=== PATIENT | female | born 1980 | race Caucasian/White ===

== ENCOUNTER 2016-08-31 16:09 | Emergency (ER) | payer SELFPAY ==
--- NOTE | 2016-08-31 16:30 | ER Document Report ---
ED Medical Screen (RME) - General Stated Complaint: SORE THROAT,SWELLING Mode of Arrival: Ambulatory Information source: Patient Notes: Patient claims of sore throat with recent strep throat exposure. Patient complains of exudate on her tonsils. hx: Hypertension I have greeted and performed a rapid initial assessment of this patient. A comprehensive ED assessment and evaluation of the patient, analysis of test results and completion of the medical decision making process will be conducted by additional ED providers. TRAVEL OUTSIDE OF THE [place] IN LAST 30 DAYS: No - Related Data Allergies/Adverse Reactions: No Known Allergies Allergy (Verified 02/07/16 13:02) Past Medical History - Past Medical History Cardiac Medical History: Reports: Hx Hypertension Past Surgical History: Reports: Hx Section, Hx Orthopedic Surgery - right foot Bone Spur 1990, Hx Tubal Ligation - Immunizations Immunizations up to date: Yes Hx Diphtheria, Pertussis, Tetanus Vaccination: No Physical Exam - Vital signs Vitals: Temp Pulse Resp BP Pulse Ox 99.7 F 100 18 158/98 H 96 08/31/16 16:16 08/31/16 16:16 08/31/16 16:16 08/31/16 16:16 08/31/16 16:16 - HEENT Pharynx: Erythema, Exudate Course - Vital Signs Vital signs: Temp Pulse Resp BP Pulse Ox 99.7 F 100 18 158/98 H 96 08/31/16 16:16 08/31/16 16:16 08/31/16 16:16 08/31/16 16:16 08/31/16 16:16
--- NOTE | 2016-08-31 20:39 | ER Document Report ---
HPI - HPI Pain Level: 2 Context: patient is a 36 year old female p/w sore throat after recent strep exposure from niece. states her symptoms started on thursday. She admits to sore throat , dysphagia, feeling warm/subjective fevers. Otherwise she denies any headaches , nasal drainage, ear pain, difficulty breathing, cough, shortness of breath. Patient has a past medical history significant for hypertension - REPRODUCTIVE Reproductive: DENIES: : - DERM Skin Color: Normal, [place] Past Medical History - General Information source: Patient - Social History Smoking Status: Unknown if Ever Smoked Family History: Reviewed & Not Pertinent Patient has suicidal ideation: No Patient has homicidal ideation: No - Past Medical History Cardiac Medical History: Reports: Hx Hypertension Renal/ Medical History: Denies: Hx Peritoneal Dialysis Past Surgical History: Reports: Hx Section, Hx Orthopedic Surgery - right foot Bone Spur 1990, Hx Tubal Ligation - Immunizations Immunizations up to date: Yes Hx Diphtheria, Pertussis, Tetanus Vaccination: No Vertical Provider Document - CONSTITUTIONAL Agree With Documented VS: Yes Exam Limitations: No Limitations General Appearance: WD/WN, No Apparent Distress - INFECTION CONTROL TRAVEL OUTSIDE OF THE [place] IN LAST 30 DAYS: No - HEENT HEENT: Atraumatic, Normocephalic, PERRLA, Pharyngeal Exudate, Pharyngeal Tenderness, Pharyngeal Erythema. negative: Tympanic Membrane Red, Tympanic Membrane Bulging - NECK Neck: Normal Inspection. negative: Lymphadenopathy-Left, Lymphadenopathy-Right - RESPIRATORY Respiratory: Breath Sounds Normal, No Respiratory Distress, Chest Non-Tender. negative: Rales, Rhonchi, Wheezing O2 Sat by Pulse Oximetry: 96 - CARDIOVASCULAR Cardiovascular: Regular Rate, Regular Rhythm, No Murmur Pulses: Normal: Radial - NEURO Level of Consciousness: Awake, Alert, Appropriate Motor/Sensory: No Motor Deficit, No Sensory Deficit - DERM Integumentary: Warm, Dry, No Rash Course - Re-evaluation Re-evalutation: 08/31/16 22:43 Patient is a 36-year-old female presenting emergency department with sore throat , pharyngeal exudate since Thursday with a positive strep exposure. Check came back negative but will treat patient on clinical evaluation. Discharge home on penicillin VK to follow up with her primary care provider as needed. - Vital Signs Vital signs: Temp Pulse Resp BP Pulse Ox 99.7 F 100 18 158/98 H 96 08/31/16 16:16 08/31/16 16:16 08/31/16 16:16 08/31/16 16:16 08/31/16 16:16 Discharge - Discharge Clinical Impression: Pharyngitis Qualifiers: Pharyngitis/tonsillitis etiology: unspecified etiology Qualified Code(s): J02.9 - Acute pharyngitis, unspecified Condition: Stable Disposition: HOME, SELF-CARE Instructions: Strep Throat ([facility]), Penicillin V K ([facility]) Prescriptions: Penicillin V Potassium [Penicillin Vk 500 mg Tablet] 500 mg PO BID 10 Days Forms: Return to Work Referrals: [facility] [Primary Care Provider] - Follow up as needed
[2016-08-31] MEDS ORDERED: PENICILLIN V POTASSIUM 500 MG TABLET PO ONE (20:41)
[2016-08-31 21:02] VITALS: BP 152/84
== END 2016-08-31 20:59 | disposition home or self-care (01) ==
LOC: ER 16:09
DX: J02.9 Acute pharyngitis, unspecified (principal); R13.10 Dysphagia, unspecified; R50.9 Fever, unspecified
CPT/HCPCS: 87070; 87880; 99283

== ENCOUNTER 2017-11-07 02:57 | Emergency (ER) | payer SELFPAY ==
[2017-11-07] MEDS ORDERED: MORPHINE SULFATE 10 MG/ML INJ IV ONE (04:36)
[2017-11-07] MEDS ORDERED: ONDANSETRON HCL INJ/PF 4 MG/2 ML SDV IV ONE (04:36)
[2017-11-07] MEDS ORDERED: NORMAL SALINE 1000 ML 1,000 ML IV ONE (04:36)
--- NOTE | 2017-11-07 04:42 | ER Document Report ---
ED GI/ - General Chief Complaint: Abdominal Pain Stated Complaint: LOWER RT ABDOMINAL PAIN Time Seen by Provider: 11/07/17 04:23 Notes: Patient is a 37-year-old female that comes emergency department for chief complaint of right lower quadrant pain. Pain started last night, she states that has been persistent and began to get worse tonight, prompting her to come into the emergency department. She denies nausea or vomiting, she denies flank pain, she denies dysuria, vaginal bleeding or discharge, she is not sexually active. Past medical history of , tubal ligation, hypertension, arthritis. She smokes, denies alcohol or recreational drugs. TRAVEL OUTSIDE OF THE [place] IN LAST 30 DAYS: No - Related Data Allergies/Adverse Reactions: No Known Allergies Allergy (Verified 11/07/17 05:03) Past Medical History - General Information source: Patient - Social History Smoking Status: Never Smoker Frequency of alcohol use: None Drug Abuse: None Lives with: Family Family History: Reviewed & Not Pertinent Patient has suicidal ideation: No Patient has homicidal ideation: No - Past Medical History Cardiac Medical History: Reports: Hx Hypertension Renal/ Medical History: Denies: Hx Peritoneal Dialysis Past Surgical History: Reports: Hx Section, Hx Orthopedic Surgery - right foot Bone Spur 1990, Hx Tubal Ligation - Immunizations Immunizations up to date: Yes Hx Diphtheria, Pertussis, Tetanus Vaccination: No Review of Systems - Review of Systems Constitutional: No symptoms reported EENT: No symptoms reported Cardiovascular: No symptoms reported Respiratory: No symptoms reported Gastrointestinal: See HPI Genitourinary: No symptoms reported Female Genitourinary: No symptoms reported Musculoskeletal: No symptoms reported Skin: No symptoms reported Hematologic/Lymphatic: No symptoms reported Neurological/Psychological: No symptoms reported Physical Exam - Vital signs Vitals: Temp Pulse Resp BP Pulse Ox 98.4 F 96 18 176/113 H 97 11/07/17 03:06 11/07/17 03:06 11/07/17 03:06 11/07/17 03:06 11/07/17 03:06 Interpretation: Normal - General General appearance: Appears well In distress: None - HEENT Head: Normocephalic, Atraumatic Eyes: Normal Conjunctiva: Normal Extraocular movements intact: Yes Eyelashes: Normal Pupils: PERRL Mouth/Lips: Normal Mucous membranes: Normal Pharynx: Normal Neck: Normal - Respiratory Respiratory status: No respiratory distress Chest status: Nontender Breath sounds: Normal. No: Decreased air movement, Wheezing Chest palpation: Normal - Cardiovascular Rhythm: Regular. No: Tachycardia Heart sounds: Normal auscultation, S1 appreciated, S2 appreciated Murmur: No - Abdominal Inspection: Normal Distension: No distension Bowel sounds: Normal Tenderness: Tender - Patient with minimal generalized abdominal tenderness, however she does have specific tenderness in the mid to right lower abdomen and also at McBurney's point. No rebound tenderness. Organomegaly: No organomegaly - Back Back: Normal, Nontender. No: Tender, CVA tenderness - Extremities General upper extremity: Normal inspection, Nontender, Normal color, Normal ROM , Normal temperature General lower extremity: Normal inspection, Nontender, Normal color, Normal ROM , Normal temperature, Normal weight bearing. No: James's sign - Neurological Neuro grossly intact: Yes Cognition: Normal Orientation: AAOx4 [place] Coma Scale Eye Opening: Spontaneous [place] Coma Scale Verbal: Oriented [place] Coma Scale Motor: Obeys Commands [place] Coma Scale Total: 15 Speech: Normal Motor strength normal: LUE, RUE, LLE, RLE Sensory: Normal - Psychological Associated symptoms: Normal affect, Normal mood - Skin Skin Temperature: Warm Skin Moisture: Dry Skin Color: Normal Course - Re-evaluation Re-evalutation: Patient does not appear to be in any significant distress, she does have some generalized abdominal tenderness but she also has specific abdominal tenderness in the mid to right lower abdomen and at McBurney's point. No rebound tenderness. No abdominal rigidity. Unremarkable vital signs other than hypertension. Patient is not sexually active. CBC, chemistry, urinalysis are generally unremarkable. However after discussion because of patient specific right lower quadrant tenderness CAT scan will be performed to rule out acute appendicitis or other acute abdominal pathology. 11/07/17 07:52 CAT scan shows normal appendix, no evidence of acute abdominal etiology. Incidental findings include moderate splenomegaly and L5-S1 disc bulge. No neurological deficits, no left upper quadrant pain specifically, on reevaluation patient states she feels much improved and she is well-appearing. Reexamination of her abdomen after drinking oral contrast shows mild diffuse pain but she does not have specific McBurney's tenderness or guarding on exam. I have low suspicion of acute abdomen based on her workup and reevaluation. Discussed with patient, discussed recommendations, follow-up, return precautions , provided with a copy of her report. Patient states satisfaction and agreement. - Vital Signs Vital signs: Temp Pulse Resp BP Pulse Ox 98.4 F 100 18 176/113 H 97 11/07/17 03:06 11/07/17 05:00 11/07/17 03:06 11/07/17 03:06 11/07/17 03:06 - Laboratory Result Diagrams: 11/07/17 04:53 11/07/17 04:53 Laboratory results interpreted by me: 11/07/17 11/07/17 11/07/17 04:53 04:53 04:53 RBC 5.53 H Hgb 11.2 L MCV 67 L MCH 20.2 L MCHC 30.2 L RDW 19.8 H Glucose 120 H Urine Blood LARGE H Urine Urobilinogen 2.0 H Ur Leukocyte Esterase TRACE H Discharge - Discharge Clinical Impression: Abdominal pain Qualifiers: Abdominal location: generalized Qualified Code(s): R10.84 - Generalized abdominal pain Condition: Stable Disposition: HOME, SELF-CARE Additional Instructions: The exact cause of your abdominal pain is unclear at this time. I suspect this should resolve with time, I recommend that you take the Colace as prescribed for the next 2 days, drink plenty fluids, take the Toradol if needed for pain. Follow-up with primary care. Your CAT scan shows incidental findings of enlarged spleen and L5-S1 disc bulging. Follow-up with primary care for additional evaluation and monitoring. Return if you worsen including specific area of return or worsening pain, vomiting, fever, or any other concerning or worsening symptoms. Prescriptions: Ketorolac Tromethamine [Toradol 10 mg Tablet] 10 mg PO Q8HP PRN #24 tablet PRN Reason: Docusate Sodium [Colace 100 mg Capsule] 100 mg PO ASDIR PRN #30 capsule PRN Reason: Forms: Elevated Blood Pressure, Return to Work
[2017-11-07 05:25] LABS: APPEARANCE,URINE SLIGHTLY-CLOUDY; BILIRUBIN,URINE NEGATIVE (NEGATIVE); COLOR,URINE YELLOW; GLUCOSE, URINE NEGATIVE (NEGATIVE); KETONES,URINE NEGATIVE (NEGATIVE); LEUKOCYTE ESTERASE,URINE TRACE (NEGATIVE); NITRITE,URINE NEGATIVE (NEGATIVE); PROTEIN,URINE NEGATIVE (NEGATIVE); URINE SPECIFIC GRAVITY 1.021
[2017-11-07 05:26] LABS: ABSOLUTE BASOPHILS # (AUTO) 0.1 10^3/uL (0.0-0.2); ABSOLUTE EOSINOPHILS # (AUTO) 0.2 10^3/uL (0.0-0.6); ABSOLUTE LYMPHOCYTES (AUTO) 2.3 10^3/uL (0.5-4.7); ABSOLUTE MONOCYTES (AUTO) 0.5 10^3/uL (0.1-1.4); ABSOLUTE NEUT (AUTO) 6.2 10^3/uL (1.7-8.2); BASOPHILS % (AUTO) 0.7 % (0-2); EOSINOPHILS % (AUTO) 2.6 % (0-6); HEMOGLOBIN 11.2 g/dL (12.0-15.5); LYMPHOCYTES % (AUTO) 25.3 % (13-45); MEAN CORPUSCULAR HEMOGLOBIN 20.2 pg (27.0-33.4); MEAN CORPUSCULAR HGB CONC 30.2 g/dL (32.0-36.0); MEAN CORPUSCULAR VOLUME 67 fl (80-97); MONOCYTES % (AUTO) 4.9 % (3-13); PLATELET COUNT 284 10^3/uL (150-450); RED BLOOD COUNT 5.53 10^6/uL (3.72-5.28); RED CELL DISTRIBUTION WIDTH 19.8 % (11.5-14.0); SEGMENTED NEUTROPHILS % (AUTO) 66.5 % (42-78); TOTAL CELLS COUNTED % (AUTO) 100 %; WHITE BLOOD COUNT 9.3 10^3/uL (4.0-10.5)
[2017-11-07 05:34] LABS: ALANINE AMINOTRANSFERASE 44 U/L (9-52); ALBUMIN 4.5 g/dL (3.5-5.0); ALKALINE PHOSPHATASE 85 U/L (38-126); ANION GAP 11 (5-19); ASPARTATE AMINO TRANSFERASE 28 U/L (14-36); BILIRUBIN,DIRECT 0.3 mg/dL (0.0-0.4); BILIRUBIN,TOTAL 0.5 mg/dL (0.2-1.3); BLOOD UREA NITROGEN 13 mg/dL (7-20); CALCIUM 9.7 mg/dL (8.4-10.2); CARBON DIOXIDE 29 mmol/L (22-30); CHLORIDE 104 mmol/L (98-107); GLUCOSE 120 mg/dL (75-110); POTASSIUM 3.9 mmol/L (3.6-5.0); SODIUM 144.1 mmol/L (137-145)
--- NOTE | 2017-11-07 07:37 | RADIOLOGY REPORT (SQ) ---
EXAM DESCRIPTION: CT ABD/PELVIS WITH IV ORAL CLINICAL HISTORY: 37 years Female, RLQ pain COMPARISON: 03.08.11 TECHNIQUE: IV contrast. Coronal and sagittal reformat. This exam was performed according to our departmental dose-optimization program, which includes automated exposure control, adjustment of the mA and/or kV according to patient size and/or use of iterative reconstruction technique. FINDINGS: Moderate splenomegaly with splenic index of 1419 (prior: 782, 03/08/11). No free fluid. Normal appendix. Moderate L5-S1 disc bulge causes moderate left foraminal stenosis. Lower thorax, liver, decompressed gallbladder, pancreas, adrenals, renal system, gastrointestinal tract, pelvic organs, lymphatics, vasculature, and musculoskeleton appear otherwise unremarkable. IMPRESSION: Moderate splenomegaly.
[2017-11-07 08:29] VITALS: BP 163/92
== END 2017-11-07 08:25 | disposition home or self-care (01) ==
LOC: ER 02:57
DX: R10.84 Generalized abdominal pain (principal); R10.817 Generalized abdominal tenderness; R16.1 Splenomegaly, not elsewhere classified; M51.87 Other intervertebral disc disorders, lumbosacral region; I10 Essential (primary) hypertension; Z98.51 Tubal ligation status
CPT/HCPCS: 99284; 96361; 96374; 96375; 36415; 84703; 85025; 80053; 81001; 74177; J2270; J2405; J7030

== ENCOUNTER 2017-12-04 11:30 | Emergency (ER) | payer SELFPAY ==
[2017-12-04] MEDS ORDERED: IPRATROPIUM/ALBUTEROL 0.5-2.5 MG/3 ML AMPUL NEB ONE ×3 (11:50→11:51)
[2017-12-04] MEDS ORDERED: PREDNISONE 20 MG TABLET PO ONE (11:50)
--- NOTE | 2017-12-04 11:53 | ER Document Report ---
ED General - General Chief Complaint: Shortness Of Breath Stated Complaint: SHORTNESS OF BREATH Time Seen by Provider: 12/04/17 11:39 Mode of Arrival: Ambulatory Information source: Patient Notes: 37 yr old female smoker presents with 2 days of sob, productive cough. Patient denies any fevers or chills notes she has been unable to smoke TRAVEL OUTSIDE OF THE [place] IN LAST 30 DAYS: No - HPI Onset: Other Onset/Duration: Persistent Quality of pain: No pain Severity: Moderate Pain Level: Denies Associated symptoms: Productive cough, Shortness of breath Exacerbated by: Movement, Walking, Coughing Relieved by: Denies Similar symptoms previously: Yes - Bronchitis Recently seen / treated by doctor: No - Related Data Allergies/Adverse Reactions: No Known Allergies Allergy (Verified 12/04/17 11:39) Past Medical History - Social History Smoking Status: Current Every Day Smoker Cigarette use (# per day): Yes Chew tobacco use (# tins/day): No Smoking Education Provided: Yes - Patient counselled regarding cessation for 4 minutes Frequency of alcohol use: None Drug Abuse: None Family History: Reviewed & Not Pertinent Patient has suicidal ideation: No Patient has homicidal ideation: No - Past Medical History Cardiac Medical History: Reports: Hx Hypertension Renal/ Medical History: Denies: Hx Peritoneal Dialysis Past Surgical History: Reports: Hx Section, Hx Orthopedic Surgery - right foot Bone Spur 1990, Hx Tubal Ligation - Immunizations Immunizations up to date: Yes Hx Diphtheria, Pertussis, Tetanus Vaccination: No Review of Systems - Review of Systems Notes: REVIEW OF SYSTEMS: CONSTITUTIONAL : Denies fever, chills, or sweats. Denies recent illness. EENT: Denies eye, ear, throat, or mouth pain or symptoms. Denies nasal or sinus congestion or discharge. Denies throat, tongue, or mouth swelling or difficulty swallowing. CARDIOVASCULAR: Denies chest pain. Denies palpitations or racing or irregular heart beat. Denies ankle edema. RESPIRATORY: Admits to smoking shortness of breath productive cough GASTROINTESTINAL: Denies abdominal pain or distention. Denies nausea, vomiting , or diarrhea. Denies blood in vomitus, stools, or per rectum. Denies black, tarry stools. Denies constipation. GENITOURINARY: Denies difficulty urinating, painful urination, burning, frequency, blood in urine, or discharge. FEMALE GENITOURINARY: Denies vaginal bleeding, heavy or abnormal periods, irregular periods. Denies vaginal discharge or odor. MUSCULOSKELETAL: Denies back or neck pain or stiffness. Denies joint pain or swelling. SKIN: Denies rash, lesions or sores. HEMATOLOGIC : Denies easy bruising or bleeding. LYMPHATIC: Denies swollen, enlarged glands. NEUROLOGICAL: Denies confusion or altered mental status. Denies passing out or loss of consciousness. Denies dizziness or lightheadedness. Denies headache. Denies weakness or paralysis or loss of use of either side. Denies problems with gait or speech. Denies sensory loss, numbness, or tingling. Denies seizures. PSYCHIATRIC: Denies anxiety or stress. Denies depression, suicidal ideation, or homicidal ideation. ALL OTHER SYSTEMS REVIEWED AND NEGATIVE. PHYSICAL EXAMINATION: GENERAL: Well-appearing, well-nourished and in no acute distress. HEAD: Atraumatic, normocephalic. EYES: Pupils equal round and reactive to light, extraocular movements intact, conjunctiva are normal. ENT: Nares patent, oropharynx clear without exudates. Moist mucous membranes. NECK: Normal range of motion, supple without lymphadenopathy LUNGS: Generalized inspiratory expiratory wheezing all throughout without any respiratory distress HEART: Regular rate and rhythm without murmurs ABDOMEN: Soft, nontender, nondistended abdomen. No guarding, no rebound. No masses appreciated. Female : deferred Musculoskeletal: Normal range of motion, no pitting or edema. No cyanosis. NEUROLOGICAL: Cranial nerves grossly intact. Normal speech, normal gait. Normal sensory, motor exams PSYCH: Normal mood, normal affect. SKIN: Warm, Dry, normal turgor, no rashes or lesions noted. Dictation was performed using [employer] voice recognition software Physical Exam - Vital signs Vitals: Temp Pulse Resp BP Pulse Ox 98.4 F 91 22 H 151/92 H 94 12/04/17 11:37 12/04/17 11:37 12/04/17 11:37 12/04/17 11:37 12/04/17 11:37 Course - Re-evaluation Re-evalutation: 12/04/17 11:53 Patient is in fact wheezing, I will give her DuoNeb's steroids doxycycline 12/04/17 13:53 pt after breathing treatments notes signifcant improvement, ambulated satting 96 %, will dc home with steroids and extremely close follow up. After performing a Medical Screening Examination, I estimate there is LOW risk for ACUTE CORONARY SYNDROME, PULMONARY EMBOLI, RESPIRATORY FAILURE, SEPSIS OR MENINGITIS, thus I consider the discharge disposition reasonable. I have reevaluated this patient multiple times and no significant life threatening changes are noted. The patient and I have discussed the diagnosis and risks, and we agree with discharging home with close follow-up. We also discussed returning to the Emergency Department immediately if new or worsening symptoms occur. We have discussed the symptoms which are most concerning (e.g., changing or worsening pain, trouble swallowing or breathing, neck stiffness, fever) that necessitate immediate return. - Vital Signs Vital signs: Temp Pulse Resp BP Pulse Ox 98.4 F 91 22 H 151/92 H 94 12/04/17 11:37 12/04/17 11:37 12/04/17 11:37 12/04/17 11:37 12/04/17 11:37 - Laboratory Result Diagrams: 12/04/17 12:25 12/04/17 12:25 Laboratory results interpreted by me: 12/04/17 12:25 RBC 5.49 H Hgb 11.2 L MCV 67 L MCH 20.4 L MCHC 30.5 L RDW 20.1 H Discharge - Discharge Clinical Impression: Bronchitis Condition: Stable Disposition: HOME, SELF-CARE Instructions: Bronchitis With Bronchospasm (Wheezing) (OM) Additional Instructions: Return immediately if symptoms are worsening Prescriptions: Prednisone [Deltasone 20 mg Tablet] 3 tab PO DAILY 5 Days tablet
[2017-12-04] MEDS ORDERED: METHYLPREDNISOLONE INJ 125 MG/2 ML SDV IV ONE (11:55)
[2017-12-04 12:49] LABS: ABSOLUTE EOSINOPHILS # (AUTO) 0.2 10^3/uL (0.0-0.6); ABSOLUTE LYMPHOCYTES (AUTO) 0.7 10^3/uL (0.5-4.7); ABSOLUTE MONOCYTES (AUTO) 0.3 10^3/uL (0.1-1.4); ABSOLUTE NEUT (AUTO) 3.8 10^3/uL (1.7-8.2); BASOPHILS % (AUTO) 0.8 % (0-2); EOSINOPHILS % (AUTO) 3.5 % (0-6); HEMATOCRIT 36.6 % (36.0-47.0); HEMOGLOBIN 11.2 g/dL (12.0-15.5); LYMPHOCYTES % (AUTO) 13.3 % (13-45); MEAN CORPUSCULAR HEMOGLOBIN 20.4 pg (27.0-33.4); MEAN CORPUSCULAR HGB CONC 30.5 g/dL (32.0-36.0); MEAN CORPUSCULAR VOLUME 67 fl (80-97); MONOCYTES % (AUTO) 6.8 % (3-13); PLATELET COUNT 242 10^3/uL (150-450); RED BLOOD COUNT 5.49 10^6/uL (3.72-5.28); RED CELL DISTRIBUTION WIDTH 20.1 % (11.5-14.0); SEGMENTED NEUTROPHILS % (AUTO) 75.6 % (42-78); TOTAL CELLS COUNTED % (AUTO) 100 %; WHITE BLOOD COUNT 5.1 10^3/uL (4.0-10.5)
[2017-12-04 13:06] LABS: ALANINE AMINOTRANSFERASE 34 U/L (9-52); ALBUMIN 4.2 g/dL (3.5-5.0); ALKALINE PHOSPHATASE 91 U/L (38-126); ANION GAP 12 (5-19); ASPARTATE AMINO TRANSFERASE 17 U/L (14-36); BILIRUBIN,DIRECT 0.2 mg/dL (0.0-0.4); BILIRUBIN,TOTAL 0.9 mg/dL (0.2-1.3); BLOOD UREA NITROGEN 9 mg/dL (7-20); CALCIUM 9.5 mg/dL (8.4-10.2); CARBON DIOXIDE 30 mmol/L (22-30); CHLORIDE 101 mmol/L (98-107); GLUCOSE 103 mg/dL (75-110); POTASSIUM 3.9 mmol/L (3.6-5.0); SODIUM 143.4 mmol/L (137-145); TOTAL PROTEIN 6.8 g/dL (6.3-8.2)
--- NOTE | 2017-12-04 13:18 | RADIOLOGY REPORT (SQ) ---
EXAM DESCRIPTION: CHEST 2 VIEWS COMPLETED DATE/TIME: 12/04/2017 12:46 pm REASON FOR STUDY: cough, wheezing COMPARISON: 06/15/2016. EXAM PARAMETERS: NUMBER OF VIEWS: two views TECHNIQUE: Digital Frontal and Lateral radiographic views of the chest acquired. RADIATION DOSE: NA LIMITATIONS: none FINDINGS: LUNGS AND PLEURA: No opacities, masses or pneumothorax. No pleural effusion. MEDIASTINUM AND HILAR STRUCTURES: No masses or contour abnormalities. HEART AND VASCULAR STRUCTURES: Heart normal size. No evidence for failure. BONES: No acute findings. HARDWARE: None in the chest. OTHER: No other significant finding. IMPRESSION: NO ACUTE RADIOGRAPHIC FINDING IN THE CHEST. TECHNICAL DOCUMENTATION: JOB ID: [id number] [email or web address] All Rights Reserved Reading location - IP/workstation name: [email or web address]
[2017-12-04] MEDS ORDERED: ACETAMINOPHEN 325 MG TABLET PO ONE (13:38)
[2017-12-04] MEDS ORDERED: ALBUTEROL SULFATE HFA (90 MCG/PUFF) 8 GM MDI (1 MDI/ER DISP) IH PRN (13:55)
[2017-12-04 14:06] VITALS: BP 168/82
== END 2017-12-04 14:10 | disposition home or self-care (01) ==
LOC: ER 11:30
DX: J40 Bronchitis, not specified as acute or chronic (principal); R06.02 Shortness of breath; F17.210 Nicotine dependence, cigarettes, uncomplicated; I10 Essential (primary) hypertension; Z98.51 Tubal ligation status
CPT/HCPCS: 99406; 94640 ×2; 99285; 96374; 36415; 85025; 80053; 71046; J2930; J3490; J7620

== ENCOUNTER 2018-03-18 20:57 | Emergency (ER) | payer SELFPAY ==
[2018-03-18] MEDS ORDERED: ASPIRIN 81 MG TABLET, CHEWABLE PO ONE (21:15)
[2018-03-18 22:19] LABS: ABSOLUTE BASOPHILS # (AUTO) 0.1 10^3/uL (0.0-0.2); ABSOLUTE EOSINOPHILS # (AUTO) 0.3 10^3/uL (0.0-0.6); ABSOLUTE LYMPHOCYTES (AUTO) 2.1 10^3/uL (0.5-4.7); ABSOLUTE MONOCYTES (AUTO) 0.4 10^3/uL (0.1-1.4); ABSOLUTE NEUT (AUTO) 5.5 10^3/uL (1.7-8.2); BASOPHILS % (AUTO) 1.1 % (0-2); HEMOGLOBIN 11.6 g/dL (12.0-15.5); LYMPHOCYTES % (AUTO) 25.2 % (13-45); MEAN CORPUSCULAR HEMOGLOBIN 20.8 pg (27.0-33.4); MEAN CORPUSCULAR HGB CONC 30.5 g/dL (32.0-36.0); MEAN CORPUSCULAR VOLUME 68 fl (80-97); MONOCYTES % (AUTO) 4.8 % (3-13); PLATELET COUNT 280 10^3/uL (150-450); RED BLOOD COUNT 5.58 10^6/uL (3.72-5.28); RED CELL DISTRIBUTION WIDTH 19.2 % (11.5-14.0); SEGMENTED NEUTROPHILS % (AUTO) 65.9 % (42-78); TOTAL CELLS COUNTED % (AUTO) 100 %; WHITE BLOOD COUNT 8.4 10^3/uL (4.0-10.5)
--- NOTE | 2018-03-18 22:38 | RADIOLOGY REPORT (SQ) ---
EXAM DESCRIPTION: XR CHEST 1 VIEW COMPLETED DATE/TME: 03/18/2018 21:15 CLINICAL HISTORY: 37 years Female, cp COMPARISON: None. NUMBER OF VIEWS/TECHNIQUE: 1/AP FINDINGS: Adequate lung volume, clear parenchyma, normal cardiac silhouette, and intact bony thorax. IMPRESSION: No acute cardiopulmonary findings.
[2018-03-18 22:41] LABS: ALANINE AMINOTRANSFERASE 28 U/L (9-52); ALBUMIN 4.3 g/dL (3.5-5.0); ALKALINE PHOSPHATASE 88 U/L (38-126); ANION GAP 10 (5-19); ASPARTATE AMINO TRANSFERASE 17 U/L (14-36); BILIRUBIN,DIRECT 0.3 mg/dL (0.0-0.4); BILIRUBIN,TOTAL 0.4 mg/dL (0.2-1.3); BLOOD UREA NITROGEN 15 mg/dL (7-20); CALCIUM 9.6 mg/dL (8.4-10.2); CARBON DIOXIDE 28 mmol/L (22-30); CHLORIDE 102 mmol/L (98-107); CREATINE KINASE 90 U/L (30-135); GLUCOSE 92 mg/dL (75-110); SODIUM 140.3 mmol/L (137-145); TOTAL PROTEIN 7.2 g/dL (6.3-8.2)
[2018-03-18 22:53] LABS: CREATINE KINASE MB 1.78 ng/mL (<4.55); TROPONIN I < 0.012 ng/mL
[2018-03-18] MEDS ORDERED: METOPROLOL TARTRATE 25 MG TABLET PO ONE (23:42)
--- NOTE | 2018-03-18 23:43 | ER Document Report ---
ED General - General Chief Complaint: Chest Pain Stated Complaint: CHEST PAIN Time Seen by Provider: 03/18/18 21:47 Notes: Patient is a 37-year-old female with a past medical history of tachycardia, palpitations, morbid obesity, current everyday tobacco use who presents with chest discomfort and palpitations. Patient reports earlier today while at work she began to have an episode of palpitations. She states that she is used to these episodes of palpitations but today she had an associated sharp, stabbing pain to her chest wall diffusely. She states that the pain was intermittent and has now resolved. Nothing was noted to improve or worsen her symptoms. She states that she has been taking her metoprolol as prescribed. She has not contacted her primary care doctor regarding today's concerns. She denies any associated diaphoresis, shortness of breath, pleuritic pain or syncope. No history of DVT or pulmonary embolus. No use of estrogen. TRAVEL OUTSIDE OF THE [place] IN LAST 30 DAYS: No - Related Data Allergies/Adverse Reactions: No Known Allergies Allergy (Verified 03/18/18 22:13) Past Medical History - General Information source: Patient - Social History Smoking Status: Current Every Day Smoker Cigarette use (# per day): Yes - 1 pack per day Chew tobacco use (# tins/day): No Smoking Education Provided: Yes - Smoking cessation counseling was provided for 4 minutes at the bedside Frequency of alcohol use: None Drug Abuse: None Lives with: Family Family History: Reviewed & Not Pertinent Patient has suicidal ideation: No Patient has homicidal ideation: No - Past Medical History Cardiac Medical History: Reports: Hx Hypertension Renal/ Medical History: Denies: Hx Peritoneal Dialysis Past Surgical History: Reports: Hx Section, Hx Orthopedic Surgery - R foot Bone Spur 1990, Hx Tubal Ligation - Immunizations Immunizations up to date: Yes Hx Diphtheria, Pertussis, Tetanus Vaccination: No Review of Systems - Review of Systems Notes: Constitutional: Negative for fever. HENT: Negative for sore throat. Eyes: Negative for visual changes. Cardiovascular: Positive for chest pain. Respiratory: Negative for shortness of breath. Gastrointestinal: Negative for abdominal pain, vomiting or diarrhea. Genitourinary: Negative for dysuria. Musculoskeletal: Negative for back pain. Skin: Negative for rash. Neurological: Negative for headaches, weakness or numbness. 10 point ROS negative except as marked above and in HPI. Physical Exam - Vital signs Vitals: Resp Pulse Ox 14 98 03/18/18 21:49 03/18/18 21:49 Interpretation: Tachycardic Notes: PHYSICAL EXAMINATION: GENERAL: Well-appearing, well-nourished and in no acute distress. HEAD: Atraumatic, normocephalic. EYES: Pupils equal round and reactive to light, extraocular movements intact, sclera anicteric, conjunctiva are normal. ENT: nares patent, oropharynx clear without exudates. Moist mucous membranes. NECK: Normal range of motion, supple without lymphadenopathy LUNGS: Breath sounds clear to auscultation bilaterally and equal. No wheezes rales or rhonchi. HEART: Regular tachycardia without murmurs ABDOMEN: Soft, nontender, normoactive bowel sounds. No guarding, no rebound. No masses appreciated. EXTREMITIES: Normal range of motion, no pitting or edema. No cyanosis. NEUROLOGICAL: No focal neurological deficits. Moves all extremities spontaneously and on command. PSYCH: Normal mood, normal affect. SKIN: Warm, Dry, normal turgor, no rashes or lesions noted. Course - Re-evaluation Re-evalutation: 03/18/18 23:39 Presentation of chest pain and palpitations in an otherwise well appearing patient. Low clinical suspicion for ACS given clinical history, exam, EKG without ST elevations or depressions, and negative initial troponin. HEART score less than or equal to 3. PE also seems unlikely given clinical history, and absence of any complaint of shortness of breath. Although patient is tachycardic she reports that this is baseline, has a long-standing history of tachycardia and typically has a resting heart rate in the low 100s. CXR without evidence of pneumothorax or pneumonia. No widened mediastinum. Aortic dissection also seems unlikely given history, symmetric pulses, CXR, and vitals. Will repeat a delta troponin, provide a oral dose of evening metoprolol that the patient normally takes and then reassess. 03/19/18 00:47 Repeat troponin is normal although this was obtained earlier than I desired based on patient's request. She states she would otherwise have left without a repeat troponin. Final assessment: Chest pain in a patient without evidence of cardiac or other serious etiology on workup today. I discussed with patient that , based on their age, risk factors and emergency department testing today, the likelihood that their symptoms are related to a heart attack is very low ( estimated risk of heart attack or over the next 30 days of less than 1%). The patient demonstrates decision making capacity and has verbalized an understanding of these risks to me. Based on this, the patient has chosen to follow-up as an outpatient. Usual chest pain return precautions reviewed. The patient states understanding and agreement with this plan. - Vital Signs Vital signs: Temp Pulse Resp BP Pulse Ox 14 141/86 H 99 03/19/18 00:48 03/19/18 00:48 03/19/18 00:48 - Laboratory Result Diagrams: 03/18/18 21:55 03/18/18 21:55 Laboratory results interpreted by me: 03/18/18 21:55 RBC 5.58 H Hgb 11.6 L MCV 68 L MCH 20.8 L MCHC 30.5 L RDW 19.2 H - Diagnostic Test Radiology reviewed: Image reviewed, Reports reviewed Radiology results interpreted by me: 03/18/18 23:43 Chest x-ray: No acute infiltrate or pneumothorax - EKG Interpretation by Me Additional EKG results interpreted by me: 03/18/18 23:43 Sinus tachycardia. Rate 107. No ST elevations or depressions. QTC is 470. Discharge - Discharge Clinical Impression: Palpitations Chest pain Qualifiers: Chest pain type: unspecified Qualified Code(s): R07.9 - Chest pain, unspecified Condition: Good Disposition: HOME, SELF-CARE Additional Instructions: You were seen today for chest pain. The exact cause of your pain is unclear. However, based on your cardiac enzyme testing, chest x-ray, and EKG it does not appear that it is from an immediately life-threatening cause at this time. Although your testing here is normal is critical that you follow-up with your primary care physician for continued evaluation of this chest pain and possible stress testing. I recommended you see your physician within the next 24-48 hours to be evaluated for consideration of a stress test. Please return to emergency department immediately if you have worsening of your chest pain, shortness of breath, vomiting, become unable to exert yourself due to pain or difficulty breathing, you pass out, or have any pain that radiates into your arms, jaw, or back. Please also return if you have any additional symptoms that are concerning to you. Referrals: [facility] [Primary Care Provider] - Follow up as needed
[2018-03-19 00:51] VITALS: BP 141/86
--- NOTE | 2018-03-19 07:35 | EKG REPORT ---
SEVERITY:- BORDERLINE ECG - SINUS TACHYCARDIA BORDERLINE T ABNORMALITIES, INFERIOR LEADS : Confirmed by: Asif Oliver MD 19-Mar-2018 07:35:15
== END 2018-03-19 00:59 | disposition home or self-care (01) ==
LOC: ER 20:57
DX: R07.89 Other chest pain (principal); R00.2 Palpitations; E66.01 Morbid (severe) obesity due to excess calories; Z68.43 Body mass index [BMI] 50.0-59.9, adult; R00.0 Tachycardia, unspecified; I10 Essential (primary) hypertension; Z79.899 Other long term (current) drug therapy; F17.210 Nicotine dependence, cigarettes, uncomplicated; Z71.6 Tobacco abuse counseling
CPT/HCPCS: 36415; 71045; 80053; 82550; 82553; 84484; 84703; 85025; 93005; 93010; 99285; 99406

== ENCOUNTER 2018-09-27 23:33 | Emergency (ER) | payer SELFPAY ==
[2018-09-28 00:12] VITALS: BP 146/92
--- NOTE | 2018-09-28 01:33 | ER Document Report ---
HPI - HPI Time Seen by Provider: 09/28/18 00:52 Pain Level: 4 Context: Patient is a 38-year-old female that comes to the emergency department for chief complaint of right knee injury. She states that 2 days ago she stepped in a hole, this caused her knee to jerk, she felt a pop, she fell forward, she has a bruise on her right mid thigh from the fall as well. She states she cannot get comfortable at night to sleep, she has pain with walking as well. She denies any other injuries. She is not on a blood thinner, only past medical history reported is hypertension. - REPRODUCTIVE Reproductive: DENIES: : Past Medical History - General Information source: Patient - Social History Smoking Status: Never Smoker Frequency of alcohol use: None Drug Abuse: None Lives with: Family Family History: Reviewed & Not Pertinent - Past Medical History Cardiac Medical History: Reports: Hx Hypertension Renal/ Medical History: Denies: Hx Peritoneal Dialysis Past Surgical History: Reports: Hx Section, Hx Orthopedic Surgery - R foot Bone Spur 1990, Hx Tubal Ligation - Immunizations Immunizations up to date: Yes Hx Diphtheria, Pertussis, Tetanus Vaccination: Yes Vertical Provider Document - CONSTITUTIONAL General Appearance: WD/WN, No Apparent Distress, Obese - INFECTION CONTROL TRAVEL OUTSIDE OF THE [place] IN LAST 30 DAYS: No - HEENT HEENT: Atraumatic, Normocephalic - NECK Neck: Normal Inspection - RESPIRATORY Respiratory: Breath Sounds Normal, No Respiratory Distress - CARDIOVASCULAR Cardiovascular: Regular Rate, Regular Rhythm - GI/ABDOMEN Gastrointestinal: Abdomen Soft, Abdomen Non-Tender - BACK Back: Normal Inspection - MUSCULOSKELETAL/EXTREMETIES Musculoskeletal/Extremeties: Tender - Tenderness over the right anterior distal thigh, this is moderate, no severe swelling or pain out of proportion. Normal temperature. Pain over the anterior knee at the base of the knee without noted swelling or deformity. Range of motion intact. Normal lower extremity exam otherwise, normal distal neurovascular exam. - NEURO Level of Consciousness: Awake, Alert, Appropriate Motor/Sensory: No Motor Deficit, No Sensory Deficit - DERM Integumentary: Warm, Dry, No Rash Course - Re-evaluation Re-evalutation: X-ray reviewed, shows no acute findings. Examination consistent with thigh muscle strain and spasm and also contusion of the knee without any concerning N normalities noted otherwise. Patient will be provided with work-release, medications, I offered her a knee immobilizer and crutches but she declined. Discussed expectations, follow-up, orthopedic follow-up. Patient states understanding and agreement. - Vital Signs Vital signs: Temp Pulse Resp BP Pulse Ox 98.9 F 97 16 146/92 H 100 09/28/18 00:10 09/28/18 00:10 09/28/18 00:10 09/28/18 00:10 09/28/18 00:10 - Diagnostic Test Radiology reviewed: Image reviewed, Reports reviewed Discharge - Discharge Clinical Impression: Right knee injury Qualifiers: Encounter type: initial encounter Qualified Code(s): S89.91XA - Unspecified injury of right lower leg, initial encounter Injury of right thigh Qualifiers: Encounter type: initial encounter Qualified Code(s): S79.921A - Unspecified injury of right thigh, initial encounter Condition: Stable Disposition: HOME, SELF-CARE Additional Instructions: There is no fracture, no fluid seen inside the joint, no concerning abnormalities on imaging. Your evaluation suggests bruising and spasm of the thigh muscles and contusion of the knee. No other concerning findings noted. Symptoms should resolve with time. Continue your 800 mg of ibuprofen, take with food, drink plenty of fluids. Take Flexeril at night especially to help you sleep. Elevate the knee, ice 3-4 times a day, rest. Symptoms should resolve with time. If symptoms continue follow-up with orthopedics referral. Return for any concerning symptoms including severe increased swelling or pain. Prescriptions: Cyclobenzaprine HCl [Flexeril 5 mg Tablet] 1 - 2 tab PO TID PRN #20 tablet PRN Reason: Ibuprofen [Ibu] 800 mg PO TID PRN #30 tablet PRN Reason: Forms: Return to Work
--- NOTE | 2018-09-28 01:46 | RADIOLOGY REPORT (SQ) ---
EXAM DESCRIPTION: XR KNEE 4 OR MORE VIEWS COMPLETED DATE/TME: 09/27/2018 00:00 CLINICAL HISTORY: 38 years, Female, Was walking and knee popped. Has pain now. COMPARISON: None. FINDINGS: No fracture or dislocation. Degenerative spurring from the superior pole of the patella. Soft tissues are unremarkable. IMPRESSION: No acute abnormality.
[2018-09-28] MEDS ORDERED: CYCLOBENZAPRINE HCL 10 MG TABLET PO ONE (02:33)
== END 2018-09-28 02:49 | disposition home or self-care (01) ==
LOC: ER 23:33
DX: S89.91XA Unspecified injury of right lower leg, initial encounter (principal); S79.921A Unspecified injury of right thigh, initial encounter; X50.0XXA Overexertion from strenuous movement or load, initial encounter; I10 Essential (primary) hypertension
CPT/HCPCS: 99283

== ENCOUNTER 2018-11-12 12:30 | Emergency (ER) | payer SELFPAY ==
[2018-11-12 12:40] VITALS: BP 163/83
[2018-11-12] MEDS ORDERED: PROCHLORPERAZINE EDISYLATE INJ 10 MG/2 ML VIAL IV ONE (13:42)
[2018-11-12] MEDS ORDERED: DEXAMETHASONE SOD PHOS INJ 10 MG/1 ML VIAL IV ONE (13:42)
[2018-11-12] MEDS ORDERED: NORMAL SALINE 1000 ML 1,000 ML IV ONE (13:42)
[2018-11-12] MEDS ORDERED: DIPHENHYDRAMINE HCL 50 MG/ML VIAL IV ONE (13:42)
[2018-11-12] MEDS ORDERED: IPRATROPIUM/ALBUTEROL 0.5-2.5 MG/3 ML AMPUL NEB ONE (13:44)
--- NOTE | 2018-11-12 13:44 | ER Document Report ---
ED Medical Screen (RME) - General Chief Complaint: Headache Stated Complaint: HEADACHE,COUGH,SORE THROAT Time Seen by Provider: 11/12/18 13:33 Mode of Arrival: Ambulatory Information source: Patient Notes: Patient presents complaining of sore throat and cough for the past 3 days. Patient does complain some shortness of breath symptoms. Patient reports nausea and diarrhea although denies any vomiting symptoms. Patient reports headache pain that started yesterday. Patient denies any chest pain. hx: Hypertension, I have greeted and performed a rapid initial assessment of this patient. A comprehensive ED assessment and evaluation of the patient, analysis of test results and completion of the medical decision making process will be conducted by additional ED providers. TRAVEL OUTSIDE OF THE [place] IN LAST 30 DAYS: No - Related Data Allergies/Adverse Reactions: No Known Allergies Allergy (Verified 03/18/18 22:13) Past Medical History - Past Medical History Cardiac Medical History: Reports: Hx Hypertension Renal/ Medical History: Denies: Hx Peritoneal Dialysis Past Surgical History: Reports: Hx Section, Hx Orthopedic Surgery - R foot Bone Spur 1990, Hx Tubal Ligation - Immunizations Immunizations up to date: Yes Hx Diphtheria, Pertussis, Tetanus Vaccination: Yes Physical Exam - Vital signs Vitals: Temp Pulse Resp BP Pulse Ox 98.4 F 94 18 163/83 H 97 11/12/18 12:37 11/12/18 12:37 11/12/18 12:37 11/12/18 12:37 11/12/18 12:37 - Respiratory Breath sounds: Nonproductive cough, Rales - Cardiovascular Rhythm: No: Tachycardia Course - Vital Signs Vital signs: Temp Pulse Resp BP Pulse Ox 98.4 F 94 18 163/83 H 97 11/12/18 12:37 11/12/18 12:37 11/12/18 12:37 11/12/18 12:37 11/12/18 12:37
--- NOTE | 2018-11-12 14:04 | RADIOLOGY REPORT (SQ) ---
EXAM DESCRIPTION: CHEST 2 VIEWS COMPLETED DATE/TIME: 11/12/2018 1:54 pm REASON FOR STUDY: cough COMPARISON: 11/06/2018 EXAM PARAMETERS: NUMBER OF VIEWS: two views TECHNIQUE: Digital Frontal and Lateral radiographic views of the chest acquired. RADIATION DOSE: NA LIMITATIONS: none FINDINGS: LUNGS AND PLEURA: No opacities, masses or pneumothorax. No pleural effusion. MEDIASTINUM AND HILAR STRUCTURES: No masses or contour abnormalities. HEART AND VASCULAR STRUCTURES: Heart size is stable. No failure. BONES: No acute findings. HARDWARE: None in the chest. OTHER: No other significant finding. IMPRESSION: No acute findings in the chest. TECHNICAL DOCUMENTATION: JOB ID: [id number] [employer]- All Rights Reserved Reading location - IP/workstation name: [email or web address]
--- NOTE | 2018-11-12 15:07 | ER Document Report ---
ED General - General Chief Complaint: Headache Stated Complaint: HEADACHE,COUGH,SORE THROAT Time Seen by Provider: 11/12/18 13:33 Primary Care Provider: CEDRIC KHAN [Primary Care Provider] - Follow up as needed Mode of Arrival: Ambulatory Information source: Patient TRAVEL OUTSIDE OF THE [place] IN LAST 30 DAYS: No - HPI Patient complains to provider of: Headache, sore throat, cough, shortness of breath, malaise Onset: Last week Onset/Duration: Sudden Quality of pain: Sharp Severity: Severe Pain Level: 4 Associated symptoms: Headache, Shortness of breath, Sore throat Exacerbated by: Denies Relieved by: Denies Similar symptoms previously: No Recently seen / treated by doctor: No Notes: 38-year-old female being seen for headache, sore throat, cough, shortness of breath, general malaise. By the time that I am seeing her she is asking the nurses to remove her IV. States that she has a family emergency with 1 of her children and needs to leave immediately. Patient not able to be examined. She was told that she may return at any time after her emergency has been taken care of. - Related Data Allergies/Adverse Reactions: No Known Allergies Allergy (Verified 03/18/18 22:13) Past Medical History - General Information source: Patient - Social History Smoking Status: Never Smoker Chew tobacco use (# tins/day): No Frequency of alcohol use: None Drug Abuse: None Family History: Reviewed & Not Pertinent Patient has suicidal ideation: No Patient has homicidal ideation: No - Past Medical History Cardiac Medical History: Reports: Hx Hypertension Renal/ Medical History: Denies: Hx Peritoneal Dialysis Past Surgical History: Reports: Hx Section, Hx Orthopedic Surgery - R foot Bone Spur 1990, Hx Tubal Ligation - Immunizations Immunizations up to date: Yes Hx Diphtheria, Pertussis, Tetanus Vaccination: Yes Review of Systems - Review of Systems Notes: Constitutional: No fevers. No chills. +malaise EENT: No eye redness. No eye pain. No ear pain. No sore throat. Cardiovascular: No chest pain. No palpitations. Respiratory: No cough. +shortness of breath. No respiratory distress. Gastrointestinal: No abdominal pain. No nausea, vomiting, or diarrhea. Genitourinary: Atraumatic. No lesions. No pain. No discharge. Musculoskeletal: Atraumatic. No swelling. No deformities. Skin: No rash or lesions. Lymphatic: No swollen lymph nodes. Neurologic: + headache. No syncope. Psychiatric: No suicidal or homicidal ideation. Physical Exam - Vital signs Vitals: Temp Pulse Resp BP Pulse Ox 98.4 F 94 18 163/83 H 97 11/12/18 12:37 11/12/18 12:37 11/12/18 12:37 11/12/18 12:37 11/12/18 12:37 - Notes Notes: General: Well-developed, well-nourished. In no acute distress. Non-toxic appearing. Cardiac: Well-perfused. Pulmonary: No respiratory distress. No cyanosis. Abdominal: Non-distended. Non-rigid. HEENT: Head is atraumatic. Neck: Supple. No adenopathy. No meningismus. Dermatologic: . Atraumatic. Chest: Atraumatic. Musculoskeletal: Moves all extremities well. Psychiatric: Normal mood. Course - Re-evaluation Re-evalutation: 11/12/18 15:06 Basic cursory exam completed. Patient unable to stay for further more extensive physical examination and further testing if needed. She is aware that she can return at any time. GCS 15 out of 15. Understands that leaving can result in worsening of her condition. She will leave AGAINST MEDICAL ADVICE and return at such time as her family emergency has been resolved. - Vital Signs Vital signs: Temp Pulse Resp BP Pulse Ox 98.4 F 94 18 163/83 H 97 11/12/18 12:37 11/12/18 12:37 11/12/18 12:37 11/12/18 12:37 11/12/18 12:37 Discharge - Discharge Clinical Impression: Left against medical advice, Cough Headache Qualifiers: Headache type: unspecified Headache chronicity pattern: acute headache Intractability: not intractable Qualified Code(s): R51 - Headache Condition: Good Disposition: AGAINST MEDICAL ADVICE Referrals: [facility] [Primary Care Provider] - Follow up as needed
== END 2018-11-12 15:00 | disposition left against medical advice (07) ==
LOC: ER 12:30
DX: R05 Cough (principal); R51 Headache; J02.9 Acute pharyngitis, unspecified; R53.81 Other malaise; I10 Essential (primary) hypertension; Z98.51 Tubal ligation status
CPT/HCPCS: 94640; 99284; 96374; 96375; 87070; 87880; 87077; 71046; J1200; J0780; J7030; J1100; J7620

== ENCOUNTER 2018-11-12 16:24 | Emergency (ER) | payer SELFPAY ==
[2018-11-12 16:34] VITALS: BP 148/78
== END 2018-11-12 17:33 | disposition left against medical advice (07) ==
LOC: ER 16:24
DX: Z53.21 Procedure and treatment not carried out due to patient leaving prior to being seen by health care provider (principal)

== ENCOUNTER 2018-11-14 20:59 | Emergency (ER) | payer SELFPAY ==
[2018-11-14 21:17] VITALS: BP 141/78
[2018-11-14] MEDS ORDERED: KETOROLAC TROMETHAMINE INJ/PF 30 MG/1 ML SDV IM ONE (21:19)
[2018-11-14] MEDS ORDERED: IPRATROPIUM/ALBUTEROL 0.5-2.5 MG/3 ML AMPUL NEB ONE (21:19)
[2018-11-14] MEDS ORDERED: PREDNISONE 20 MG TABLET PO ONE (21:23)
--- NOTE | 2018-11-14 21:29 | ER Document Report ---
ED General - General Chief Complaint: Cold Symptoms Stated Complaint: COUGH,CHEST PAIN WHEN COUGHING,SORE THROAT Time Seen by Provider: 11/14/18 21:15 TRAVEL OUTSIDE OF THE [place] IN LAST 30 DAYS: No - HPI Notes: Patient is a 38-year-old female that presents to the emergency department for chief complaint of cough, congestion and sore throat. Patient states her symptoms started 2 to 3 days ago. She reports bilateral sore throat. She also states that she has been coughing and feels tightness in her chest. She does smoke daily and has not had to decrease her tobacco use. She states she has had to use butyryl inhalers with bronchitis previously. Patient states she was seen in the emergency room 2 days ago but was unable to stay for her results because of a family situation. She states she was sent home from work today because of her cough. Past Medical History: Reactive airway disease, hypertension Past Surgical History: Negative Social History: Daily tobacco. Denies drug and alcohol use Family History: Reviewed and noncontributory for presenting illness Allergies: Reviewed, see documented allergy list. REVIEW OF SYSTEMS: CONSTITUTIONAL : No fever No chills No diaphoresis No recent illness EENT: No vision changes congestion sore throat CARDIOVASCULAR: No chest pain No palpitations RESPIRATORY: shortness of breath cough GASTROINTESTINAL: No abdominal pain No nausea No vomiting No diarrhea GENITOURINARY: No dysuria No hematuria No difficulty urinating MUSCULOSKELETAL: No back pain No leg pain No arm pain SKIN: No rashes No lesions LYMPHATIC: No swollen, enlarged glands. NEUROLOGICAL: No lightheadedness No headache No weakness No paresthesias PSYCHIATRIC: No anxiety No depression PHYSICAL EXAMINATION: Vital signs reviewed, nursing noted reviewed. GENERAL: Well-appearing, well-nourished and in no acute distress. HEAD: Atraumatic, normocephalic. EYES: Eyes appear normal, extraocular movements intact, sclera anicteric, conjunctiva are normal. ENT: nares patent, oropharynx clear without exudates. Moist mucous membranes. NECK: Normal range of motion, supple without lymphadenopathy LUNGS: Bilateral decreased lung sounds with wheezing. No accessory muscle use or tachypnea. HEART: Regular rate and rhythm without murmurs ABDOMEN: Soft, nontender, normoactive bowel sounds. No rebound, guarding, or rigidity. No masses appreciated. EXTREMITIES: Nontender, good range of motion, no pitting or edema. NEUROLOGICAL: No focal neurological deficits. Moves all extremities spontaneously Motor and sensory grossly intact on exam. PSYCH: Normal mood, normal affect. SKIN: Warm, Dry, normal turgor, no rashes or lesions noted on exposed skin - Related Data Allergies/Adverse Reactions: No Known Allergies Allergy (Verified 03/18/18 22:13) Past Medical History - Social History Smoking Status: Never Smoker Family History: Reviewed & Not Pertinent - Past Medical History Cardiac Medical History: Reports: Hx Hypertension Renal/ Medical History: Denies: Hx Peritoneal Dialysis Past Surgical History: Reports: Hx Section, Hx Orthopedic Surgery - R foot Bone Spur 1990, Hx Tubal Ligation - Immunizations Immunizations up to date: Yes Hx Diphtheria, Pertussis, Tetanus Vaccination: Yes Physical Exam - Vital signs Vitals: Temp Pulse Resp BP Pulse Ox 100.3 F 95 20 141/78 H 93 11/14/18 21:08 11/14/18 21:08 11/14/18 21:08 11/14/18 21:08 11/14/18 21:08 Course - Re-evaluation Re-evalutation: 11/14/18 21:26 Vitals reviewed. Nursing notes reviewed. Patient was seen here on 11/12 and chart review shows a negative chest x-ray and strep test. I did offer repeat chest x-ray since her cough and congestion symptoms have been increasing which she has declined. Patient will be given albuterol, Toradol, and prednisone for her symptoms. Her oropharynx appears normal and I do not suspect strep, peritonsillar abscess or retropharyngeal abscess. Patient is otherwise well- appearing. She will be discharged home with instructions to stop smoking as well as prescriptions for albuterol and prednisone. - Vital Signs Vital signs: Temp Pulse Resp BP Pulse Ox 100.3 F 95 20 141/78 H 93 11/14/18 21:08 11/14/18 21:08 11/14/18 21:08 11/14/18 21:08 11/14/18 21:08 Discharge - Discharge Clinical Impression: Bronchitis, Sore throat Condition: Stable Disposition: HOME, SELF-CARE Instructions: Bronchitis With Bronchospasm (Wheezing) ([facility]) Additional Instructions: Please return to the emergency department if you have any worsening, or concern of your symptoms. Please return to the emergency department if you develop chest pain, difficulty breathing, severe abdominal pain, or ongoing vomiting. Please follow-up with your primary care physician in 2-3 days and any other recommended physicians. If prescribed, take all medications as directed. If you have any questions or concerns do not hesitate to return the emergency department for evaluation. Prescriptions: Albuterol Sulfate [Proair HFA Inhalation Aerosol 8.5 gm MDI] 2 puff IH Q4H PRN #1 mdi PRN Reason: Prednisone [Deltasone 20 mg Tablet] 2 tab PO DAILY 5 Days tablet Forms: Smoking Cessation Education Referrals: [facility] [Provider Group] - Follow up as needed [facility] [Provider Group] - Follow up as needed
== END 2018-11-14 21:43 | disposition home or self-care (01) ==
LOC: ER 20:59
DX: J40 Bronchitis, not specified as acute or chronic (principal); J02.9 Acute pharyngitis, unspecified; R05 Cough; R07.9 Chest pain, unspecified; F17.210 Nicotine dependence, cigarettes, uncomplicated; Z79.899 Other long term (current) drug therapy; I10 Essential (primary) hypertension
CPT/HCPCS: 99283; J1885; J7512; J7620

== ENCOUNTER 2018-11-16 02:55 | Observation (INO) | payer SELFPAY ==
[2018-11-16] MEDS ORDERED: IPRATROPIUM/ALBUTEROL 0.5-2.5 MG/3 ML AMPUL NEB ONE (03:22)
[2018-11-16] MEDS ORDERED: METHYLPREDNISOLONE INJ 125 MG/2 ML SDV IV ONE (03:22)
--- NOTE | 2018-11-16 03:25 | ER Document Report ---
Addendum entered and electronically signed by ZAIDA JUNIOR PA-C 11/16/18 20:19: Course - Re-evaluation Re-evalutation: 11/16/18 08:35 Dr. Zepeda came to the ED and accepted admission prior to any of the results being obtained. - Vital Signs Vital signs: Temp Pulse Resp BP Pulse Ox 98.5 F 95 20 148/77 H 98 11/16/18 13:49 11/16/18 17:11 11/16/18 17:11 11/16/18 17:11 11/16/18 17:11 - Laboratory Result Diagrams: 11/16/18 02:58 11/16/18 02:58 Laboratory results interpreted by me: 11/16/18 11/16/18 11/16/18 02:58 02:58 07:58 Hgb 8.1 L Hct 28.3 L MCV 64 L MCH 18.3 L MCHC 28.8 L RDW 19.4 H ABG HCO3 24.9 H ABG Total CO2 26.2 H BUN 21 H Glucose 123 H Addendum entered and electronically signed by MELISSA MCKENZIE PA 11/16/18 20:12: Discharge - Discharge Clinical Impression: Wheezing, Tobacco abuse, Cough, Hypoxia Condition: Stable Disposition: ADMITTED OBSERVATION Original Note: ED Respiratory Problem - General TRAVEL OUTSIDE OF THE [place] IN LAST 30 DAYS: No <MELISSA MCKENZIE - Last Filed: 11/16/18 08:16> <ZAIDA JUNIOR - Last Filed: 11/16/18 08:54> - General Chief Complaint: Breathing Difficulty Stated Complaint: DIFFICULTY BREATHING Time Seen by Provider: 11/16/18 03:18 Primary Care Provider: CEDRIC KHAN [NO LOCAL MD] - Follow up as needed Notes: Patient is a 38 year old female that comes to the Emergency Department for chief complaint of wheezing, cough, shortness of breath. She smokes, she reports a history of frequent bronchitis, she denies a history of COPD or asthma. She was seen 2 days ago, prescribed prednisone and albuterol, states she cannot afford these until Thursday. She denies fever/chills. She reports a sore throat, cough. She denies difficulty swallowing. She denies any other complaints at this time. (MELISSA MCKENZIE) - Related Data Allergies/Adverse Reactions: No Known Allergies Allergy (Verified 03/18/18 22:13) Past Medical History - General Information source: Patient - Social History Smoking Status: Current Every Day Smoker Smoking Education Provided: Yes - <3 min Frequency of alcohol use: None Drug Abuse: None Lives with: Family Family History: Reviewed & Not Pertinent Patient has suicidal ideation: No Patient has homicidal ideation: No - Past Medical History Cardiac Medical History: Reports: Hx Hypertension Renal/ Medical History: Denies: Hx Peritoneal Dialysis Past Surgical History: Reports: Hx Section, Hx Orthopedic Surgery - R foot Bone Spur 1990, Hx Tubal Ligation - Immunizations Immunizations up to date: Yes Hx Diphtheria, Pertussis, Tetanus Vaccination: Yes <MAGALYMELISSA - Last Filed: 11/16/18 08:16> Review of Systems - Review of Systems Constitutional: No symptoms reported EENT: See HPI Cardiovascular: No symptoms reported Respiratory: See HPI Gastrointestinal: No symptoms reported Genitourinary: No symptoms reported Female Genitourinary: No symptoms reported Musculoskeletal: No symptoms reported Skin: No symptoms reported Hematologic/Lymphatic: No symptoms reported Neurological/Psychological: No symptoms reported <MAGALYMELISSA - Last Filed: 11/16/18 08:16> Physical Exam <MAGALYMELISSA - Last Filed: 11/16/18 08:16> - Vital signs Vitals: Resp Pulse Ox 25 H 97 11/16/18 03:02 11/16/18 03:02 - Notes Notes: GENERAL: Alert, obese HEAD: Normocephalic, atraumatic. EYES: Pupils equal, round, and reactive to light. Extraocular movements intact. ENT: Oral mucosa moist, tongue midline. Oropharynx unremarkable. Airway patent. Nares patent, no nasal septal hematoma, TM's intact. NECK: Full range of motion. Supple. Trachea midline. LUNGS: Patient can speak in full sentences but still has tachypnea. Large amount of scattered wheezes with expiration and a few scattered rhonchi. No rales. HEART: Borderline tachycardic, normal rhythm, no murmur. ABDOMEN: Soft, non-tender. Non-distended. Bowel sounds present in all 4 quadrants. GENITOURINARY: Deferred EXTREMITIES: Moves all 4 extremities spontaneously. No edema, normal radial and dorsalis pedis pulses bilaterally. No cyanosis. BACK: no cervical, thoracic, lumbar midline tenderness. No saddle anesthesia, normal distal neurovascular exam. NEUROLOGICAL: Alert and oriented x3. Normal speech. PSYCH: Normal affect, normal mood. SKIN: Warm, dry, normal turgor. No rashes or lesions noted. (MELISSA MCKENZIE) Course <MAGALYMELISSA - Last Filed: 11/16/18 08:16> - Laboratory Result Diagrams: 11/16/18 02:58 11/16/18 02:58 <VERNONZAIDA - Last Filed: 11/16/18 08:54> - Re-evaluation Re-evalutation: Patient has had negative strep testing and chest x-ray several days ago. No development of fever. Recurrence of wheezing but patient is not taking her prednisone or albuterol because she is not been able to afford these yet. Patient does have initial tachypnea, borderline hypoxia, giving duo nebs, steroids, and we will closely reassess. Patient did become hypoxic down to 87 on room air after stopping the DuoNeb's. She still has a cough and expiratory wheezes with slight improvement on reeva luation. Given magnesium, placed on oxygen. On oxygen patient does not have hypoxia. On reevaluation patient is improved but still has some wheezing. Chest x-ray is unremarkable. Patient ambulated but her oxygen saturation did not get back out of the 80s and into the 90s during the entire ambulation. She also became tachycardic up to 125. Patient also became significantly short of breath with difficulty breathing. Will discuss with hospitalist for admission. Patient states agreement with this plan. 11/16/18 07:[address] Roland, hospitalist, he requests ABG and a call back. Dr. Sood is aware of the patient. ABG unremarkable, patient has been using oxygen for some time now. Called Dr. Roland with ABG results, he requests that I speak to Dr. Zepeda. 11/16/18 08:[address] Zepeda, he requests that I order additional laboratory workup before admission. (MELISSA MCKENZIE) - Vital Signs Vital signs: Temp Pulse Resp BP Pulse Ox 98.5 F 105 H 21 H 154/81 H 92 11/16/18 03:03 11/16/18 03:03 11/16/18 08:23 11/16/18 08:23 11/16/18 08:23 - Laboratory Laboratory results interpreted by me: 11/16/18 11/16/18 02:58 07:58 Hgb 8.1 L Hct 28.3 L MCV 64 L MCH 18.3 L MCHC 28.8 L RDW 19.4 H ABG HCO3 24.9 H ABG Total CO2 26.2 H Discharge <MELISSA MCKENZIE - Last Filed: 11/16/18 08:16> - Discharge Admitting Provider: Katelyn (Hospitalist) Unit Admitted: Telemetry <ZAIDA JUNIOR - Last Filed: 11/16/18 08:54> - Discharge Clinical Impression: Wheezing, Tobacco abuse, Cough, Hypoxia Condition: Stable Disposition: ADMITTED OBSERVATION Referrals: LOCAL,NO [NO LOCAL MD] - Follow up as needed
[2018-11-16] MEDS ORDERED: HYDROCODONE/ACETAMINOPHEN 5-325 MG TABLET PO ONE (04:41)
[2018-11-16] MEDS: MAGNESIUM SULFATE/D5W 1 GM/100 ML RTUPB IV SCH ×2 (04:47→05:15)
[2018-11-16] MEDS ORDERED: NORMAL SALINE 500 ML IV ONE (05:04)
--- NOTE | 2018-11-16 07:23 | RADIOLOGY REPORT (SQ) ---
CLINICAL HISTORY: shortness of breath, hypoxia COMPARISON: June 15 2016. TECHNIQUE: XR CHEST 1 VIEW 11/16/2018 6:15 AM CDT FINDINGS: Cardiac silhouette is normal in size. Lungs are clear without consolidation, atelectasis, mass or edema. There is no pleural effusion. There is no pneumothorax. There are no acute osseous findings. IMPRESSION: Clear lungs.
[2018-11-16 08:07] LABS: ARTERIAL BLOOD BASE EXCESS 0.1 mmol/L; ARTERIAL BLOOD H2CO3 1.24 mmol/L (1.05-1.35); ARTERIAL BLOOD HCO3 24.9 mmol/L (20-24); ARTERIAL BLOOD O2 SATURATION 96.1 % (94-98); ARTERIAL BLOOD PCO2 41.1 mmHg (35-45); ARTERIAL BLOOD PO2 81.8 mmHg (80-100); ARTERIAL BLOOD TOTAL CO2 26.2 mmol/L (21-25)
[2018-11-16 08:10] LABS: ARTERIAL BLOOD FIO2 2L
[2018-11-16 08:37] LABS: ABSOLUTE EOSINOPHILS # (AUTO) 0.2 10^3/uL (0.0-0.6); ABSOLUTE LYMPHOCYTES (AUTO) 1.1 10^3/uL (0.5-4.7); ABSOLUTE MONOCYTES (AUTO) 0.7 10^3/uL (0.1-1.4); ABSOLUTE NEUT (AUTO) 4.8 10^3/uL (1.7-8.2); BASOPHILS % (AUTO) 0.6 % (0-2); EOSINOPHILS % (AUTO) 2.2 % (0-6); HEMATOCRIT 28.3 % (36.0-47.0); HEMOGLOBIN 8.1 g/dL (12.0-15.5); MEAN CORPUSCULAR HEMOGLOBIN 18.3 pg (27.0-33.4); MEAN CORPUSCULAR HGB CONC 28.8 g/dL (32.0-36.0); MEAN CORPUSCULAR VOLUME 64 fl (80-97); MONOCYTES % (AUTO) 10.5 % (3-13); PLATELET COUNT 229 10^3/uL (150-450); RED BLOOD COUNT 4.44 10^6/uL (3.72-5.28); RED CELL DISTRIBUTION WIDTH 19.4 % (11.5-14.0); SEGMENTED NEUTROPHILS % (AUTO) 70.7 % (42-78); TOTAL CELLS COUNTED % (AUTO) 100 %; WHITE BLOOD COUNT 6.8 10^3/uL (4.0-10.5)
[2018-11-16] MEDS ORDERED: ONDANSETRON HCL INJ/PF 4 MG/2 ML SDV IV PRN (08:59)
[2018-11-16 09:02] LABS: ANION GAP 12 (5-19); BLOOD UREA NITROGEN 21 mg/dL (7-20); CALCIUM 9.6 mg/dL (8.4-10.2); CARBON DIOXIDE 28 mmol/L (22-30); CHLORIDE 102 mmol/L (98-107); GLUCOSE 123 mg/dL (75-110); POTASSIUM 3.7 mmol/L (3.6-5.0); SODIUM 141.6 mmol/L (137-145)
[2018-11-16 09:04] LABS: ANISOCYTOSIS 2+; HYPOCHROMASIA 2+; OVALOCYTES 1+; PLATELET COMMENT ADEQUATE; POIKILOCYTOSIS 1+; POLYCHROMASIA SLIGHT
--- NOTE | 2018-11-16 09:19 | PDOC H&P ---
History of Present Illness Admission Date/PCP: 11/16/2018 Patient complains of: Came into the emergency room with complaints of shortness of breath and cough for last 4 days History of Present Illness: THERON ROCHE is a 38 year old female with history of obesity, hypertension came to the emergency room with complaints of shortness of breath and cough for the last 4 days. She was here on Thursday and she was told she has bronchitis and given an inhaler and prednisone she unable to fill the prescriptions initially then EKG came back here in Thursday bladder problems and today came back again worsening shortness of breath and cough. Patient given the history of low- grade fever at home and shortness of breath is associated with productive cough whitish to green sputum denies any nausea vomiting's complaining of loose stools since yesterday. Denies any rashes. Denies any dizzy spells. Denies any rashes denies any headaches. Denies any problems with urination. Patient has similar symptoms 1 year ago at the time she was diagnosed with bronchitis. Past Medical History Cardiac Medical History: Reports: Hypertension Past Surgical History Past Surgical History: Reports: Section, Orthopedic Surgery - R foot Bone Spur 1990, Tubal Ligation Social History Lives with: Family Smoking Status: Current Every Day Smoker Frequency of Alcohol Use: Occasional Hx Recreational Drug Use: No Hx Prescription Drug Abuse: No - Advance Directive Resuscitation Status: Full Code Family History Family History: Reviewed & Not Pertinent Parental Family History Reviewed: Yes - Mother with history of hypertension sisiter has diabetes. Children Family History Reviewed: Yes Sibling(s) Family History Reviewed.: Yes Medication/Allergy Home Medications: Metoprolol Tartrate [Lopressor 50 mg Tablet] 50 mg PO Q12 11/16/18 Allergies/Adverse Reactions: No Known Allergies Allergy (Verified 03/18/18 22:13) Review of Systems Constitutional: PRESENT: fatigue, headache(s), weakness. ABSENT: chills, feve r(s), night sweats Eyes: ABSENT: visual disturbances Ears: ABSENT: hearing changes Nose, Mouth, and Throat: ABSENT: sore throat Cardiovascular: ABSENT: chest pain, dyspnea on exertion, edema, orthropnea, palpitations Respiratory: PRESENT: cough, dyspnea, sputum Gastrointestinal: PRESENT: diarrhea. ABSENT: nausea, vomiting Genitourinary: ABSENT: dysuria, hematuria Musculoskeletal: ABSENT: joint swelling Neurological: ABSENT: abnormal gait, abnormal speech, confusion, dizziness, focal weakness, syncope Psychiatric: ABSENT: anxiety, depression, homidical ideation, suicidal ideation Physical Exam Vital Signs: Temp Pulse Resp BP Pulse Ox 98.5 F 105 H 21 H 154/81 H 92 11/16/18 03:03 11/16/18 03:03 11/16/18 08:23 11/16/18 08:23 11/16/18 08:23 Intake & Output 11/15/18 11/16/18 11/17/18 06:59 06:59 06:59 Intake Total 647 Balance 647 General appearance: PRESENT: mild distress, obese Head exam: PRESENT: atraumatic Eye exam: PRESENT: PERRLA Mouth exam: PRESENT: moist, tongue midline Teeth exam: PRESENT: poor dentation Neck exam: ABSENT: carotid bruit, JVD, lymphadenopathy, thyromegaly Respiratory exam: PRESENT: decreased breath sounds Cardiovascular exam: PRESENT: tachycardia GI/Abdominal exam: PRESENT: normal bowel sounds, soft. ABSENT: distended, guarding, mass, organolmegaly, rebound, tenderness Rectal exam: PRESENT: deferred Extremities exam: PRESENT: full ROM. ABSENT: calf tenderness, clubbing, pedal edema Neurological exam: PRESENT: alert, awake, oriented to person, oriented to place, oriented to time, oriented to situation, CN II-XII grossly intact. ABSENT: motor sensory deficit Psychiatric exam: PRESENT: appropriate affect, normal mood. ABSENT: homicidal ideation, suicidal ideation Results Laboratory Results: 11/16/18 02:58 11/16/18 02:58 11/16/18 11/16/18 11/16/18 02:58 02:58 02:58 WBC 6.8 RBC 4.44 Hgb 8.1 L Hct 28.3 L MCV 64 L MCH 18.3 L MCHC 28.8 L RDW 19.4 H Plt Count 229 Seg Neutrophils % 70.7 Lymphocytes % 16.0 Monocytes % 10.5 Eosinophils % 2.2 Basophils % 0.6 Absolute Neutrophils 4.8 Absolute Lymphocytes 1.1 Absolute Monocytes 0.7 Absolute Eosinophils 0.2 Absolute Basophils 0.0 Carbonic Acid HCO3/H2CO3 Ratio ABG pH ABG pCO2 ABG pO2 ABG HCO3 ABG O2 Saturation ABG Base Excess FiO2 Sodium 141.6 Potassium 3.7 Chloride 102 Carbon Dioxide 28 Anion Gap 12 BUN 21 H Creatinine 0.95 Est GFR ( Amer) > 60 Est GFR (Non-Af Amer) > 60 Glucose 123 H Calcium 9.6 Serum HCG, Qual NEGATIVE 11/16/18 07:58 WBC RBC Hgb Hct MCV MCH MCHC RDW Plt Count Seg Neutrophils % Lymphocytes % Monocytes % Eosinophils % Basophils % Absolute Neutrophils Absolute Lymphocytes Absolute Monocytes Absolute Eosinophils Absolute Basophils Carbonic Acid 1.24 HCO3/H2CO3 Ratio 20:1 ABG pH 7.40 ABG pCO2 41.1 ABG pO2 81.8 ABG HCO3 24.9 H ABG O2 Saturation 96.1 ABG Base Excess 0.1 FiO2 2L Sodium Potassium Chloride Carbon Dioxide Anion Gap BUN Creatinine Est GFR ( Amer) Est GFR (Non-Af Amer) Glucose Calcium Serum HCG, Qual Impressions: Chest X-Ray 11/16/18 06:15 IMPRESSION: Clear lungs. Assessment and Plan - Diagnosis (1) Bronchitis Is this a current diagnosis for this admission?: Yes Plan: 11/16/2018 38-year-old obese female came to the emergency room 3 times with respiratory tract symptoms coughing with whitish to green sputum, shortness of breath despite giving the nebulizer treatments pulse oxes are not improving , so medical consult was called for admission. Plan to place the patient in telemetry as observation blood cultures urine cultures requested CT chest without contrast was requested GI prophylaxis DVT prophylaxis initiated started on IV Rocephin 2 g daily and IV levofloxacin 50 mg daily. To start on nebulizer treatments scheduled and as needed. Placed on oxygen supplementation. pt is a smokers to start on a nicotine patch. The labs looks okay. WBC is normal. No electrolyte abnormalities. X-ray was negative for pneumonia. (2) Obesity (BMI 30.0-34.9) Is this a current diagnosis for this admission?: No Plan: 11/16/2018-she has BMI is more than 30. Diet exercise lifestyle modifications are discussed with the patient. Dietary consult is going to be requested. (3) Tobacco abuse Is this a current diagnosis for this admission?: No Plan: Patient is a chronic smoker smokes close to 1 pack/day. Smoking counseling was provided for more than [address] a nicotine patch 21 mcg daily. (4) HTN (hypertension) Is this a current diagnosis for this admission?: No Plan: 11/16/2018-patient has history of hypertension she takes metoprolol 50 mg every 12 hours at home. Plan is to resume the medication during the hospital stay. Pressure today is 154/81. Low-salt diet was advised. (5) Hypoxia Is this a current diagnosis for this admission?: Yes Plan: 11/16/2018-patient is hypoxic in the ER. Pulse ox dropped to 87 after stopping the DuoNeb nebulizations. Because of hypoxia is most likely secondary to underlying bronchitis. Chest x-ray was negative for pneumonia. Plan to do the CT chest without contrast today. And is placed on oxygen supplementation, IV going to give nebs as scheduled and PRN basis. - Time Time Spent with patient: 15-24 minutes Smoking Cessation Education: over 10 minutes Medications reviewed and adjusted accordingly: Yes Anticipated discharge: Home
[2018-11-16] MEDS ORDERED: LEVOFLOXACIN 750 MG/D5W RTU 750 MG/150 ML RTUPB IV SCH (10:00)
[2018-11-16] MEDS: NICOTINE 21 MG/24 HR PATCH.TD24 TD SCH (10:35)
[2018-11-16] MEDS: DOCUSATE SODIUM 100 MG CAPSULE PO SCH ×2 (10:35→17:46)
[2018-11-16] MEDS: LEVALBUTEROL HCL NEB 0.63 MG/3 ML AMPUL NEB PRN (10:36)
[2018-11-16] MEDS: ENOXAPARIN SODIUM INJ 40 MG/0.4 ML DISP.SYRIN SUBCUT SCH (10:36)
[2018-11-16] MEDS: METOPROLOL TARTRATE 50 MG TABLET PO SCH ×2 (10:36→22:19)
[2018-11-16] MEDS: CEFTRIAXONE 2 GM/D5W RTU 2 GM/50 ML RTUPB IV SCH (10:37)
[2018-11-16 10:39] LABS: TROPONIN I < 0.012 ng/mL
[2018-11-16 11:14] LABS: APPEARANCE,URINE CLEAR; BILIRUBIN,URINE NEGATIVE (NEGATIVE); COLOR,URINE YELLOW; GLUCOSE, URINE NEGATIVE (NEGATIVE); KETONES,URINE NEGATIVE (NEGATIVE); LEUKOCYTE ESTERASE,URINE NEGATIVE (NEGATIVE); NITRITE,URINE NEGATIVE (NEGATIVE); PROTEIN,URINE NEGATIVE (NEGATIVE); URINE SPECIFIC GRAVITY 1.012; UROBILINOGEN,URINE NEGATIVE mg/dL (<2.0)
[2018-11-16 11:34] LABS: URINE AMPHETAMINES SCREEN NEGATIVE; URINE BARBITURATES SCREEN NEGATIVE; URINE BENZODIAZEPINES SCREEN NEGATIVE; URINE COCAINE SCREEN NEGATIVE; URINE MARIJUANA (THC) SCREEN NEGATIVE; URINE METHADONE SCREEN NEGATIVE; URINE PHENCYCLIDINE SCREEN NEGATIVE
--- NOTE | 2018-11-16 11:36 | RADIOLOGY REPORT (SQ) ---
EXAM DESCRIPTION: CT CHEST WITHOUT COMPLETED DATE/TIME: 11/16/2018 9:43 am REASON FOR STUDY: shortness of breath COMPARISON: None. TECHNIQUE: CT scan performed of the chest without intravenous contrast. Images reviewed with lung, soft tissue and bone windows. Reconstructed coronal and sagittal MPR images reviewed. All images st ored on PACS. All CT scanners at this facility use dose modulation, iterative reconstruction, and/or weight based d osing when appropriate to reduce radiation dose to as low as reasonably achievable (ALARA). [facility]: Dose Right [facility]: CareDose [facility]: Dose Right [facility]: Teradose 4D [facility]: [employer] RADIATION DOSE: CT Rad equipment meets quality standard of care and radiation dose reduction techniq ues were employed. CTDIvol: 20.9 mGy. DLP: 812 mGy-cm. mGy. LIMITATIONS: No technical limitations. FINDINGS: LUNGS AND PLEURA: Image 23, 3 mm ground-glass nodule right upper lobe. Image 35, 5 mm chey und-glass nodule left lower lobe. No infiltrate. No effusions. HILAR AND MEDIASTINAL STRUCTURES: No identified masses or abnormal nodes. No obvious aneurysm. HEART AND VASCULAR STRUCTURES: No aneurysm. No pericardial effusion. UPPER ABDOMEN: No significant findings. Limited exam. THYROID AND OTHER SOFT TISSUES: No masses. No adenopathy. BONES: No significant finding. HARDWARE: None in the chest. OTHER: No other significant findings. IMPRESSION: Less than 6 mm ground-glass nodules. No infiltrate. TECHNICAL DOCUMENTATION: JOB ID: [id number] Quality ID # [id number]: Final reports with documentation of one or more dose reduction techniques (e.g., Au tomated exposure control, adjustment of the mA and/or kV according to patient size, use of iterative reconstruction technique) 2010 [email or web address]- All Rights Reserved Reading location - IP/workstation name: [email or web address]
[2018-11-16] MEDS: ACETAMINOPHEN 325 MG TABLET PO PRN ×2 (11:56→18:57)
[2018-11-16] MEDS: LEVOFLOXACIN 750 MG/D5W RTU 750 MG/150 ML RTUPB IV SCH (11:58)
[2018-11-16 15:25] LABS: CREATINE KINASE MB 1.92 ng/mL (<4.55); TROPONIN I < 0.012 ng/mL
[2018-11-16] MEDS: PANTOPRAZOLE SODIUM 40 MG TABLET.DR PO SCH (18:57)
[2018-11-16] MEDS: GUAIFENESIN/CODEINE PHOS 100-10 MG/ 5 ML UDC PO PRN (20:01)
[2018-11-16] MEDS ORDERED: NICOTINE 21 MG/24 HR PATCH.TD24 TD ONE (20:30)
[2018-11-16] MEDS: IBUPROFEN 600 MG TABLET PO PRN (22:18)
[2018-11-16 22:25] LABS: CREATINE KINASE MB 1.93 ng/mL (<4.55)
[2018-11-16 22:26] LABS: TROPONIN I < 0.012 ng/mL
--- NOTE | 2018-11-16 22:33 | EKG REPORT ---
SEVERITY:- BORDERLINE ECG - SINUS TACHYCARDIA BORDERLINE T WAVE ABNORMALITIES : Confirmed by: Patito Banuelos MD 16-Nov-2018 22:33:04
--- NOTE | 2018-11-16 22:33 | EKG REPORT ---
SEVERITY:- OTHERWISE NORMAL ECG - SINUS TACHYCARDIA : Confirmed by: Patito Banuelos MD 16-Nov-2018 22:32:55
[2018-11-17] MEDS: LEVALBUTEROL HCL NEB 0.63 MG/3 ML AMPUL NEB PRN ×4 (00:12→20:16)
[2018-11-17] MEDS: PANTOPRAZOLE SODIUM 40 MG TABLET.DR PO SCH ×2 (07:01→17:29)
[2018-11-17 07:23] LABS: ABSOLUTE EOSINOPHILS # (AUTO) 0.1 10^3/uL (0.0-0.6); ABSOLUTE LYMPHOCYTES (AUTO) 1.5 10^3/uL (0.5-4.7); ABSOLUTE MONOCYTES (AUTO) 0.8 10^3/uL (0.1-1.4); ABSOLUTE NEUT (AUTO) 4.8 10^3/uL (1.7-8.2); BASOPHILS % (AUTO) 0.4 % (0-2); EOSINOPHILS % (AUTO) 0.8 % (0-6); HEMATOCRIT 27.1 % (36.0-47.0); LYMPHOCYTES % (AUTO) 20.8 % (13-45); MEAN CORPUSCULAR HEMOGLOBIN 18.1 pg (27.0-33.4); MEAN CORPUSCULAR HGB CONC 28.5 g/dL (32.0-36.0); MEAN CORPUSCULAR VOLUME 64 fl (80-97); MONOCYTES % (AUTO) 11.5 % (3-13); PLATELET COUNT 222 10^3/uL (150-450); RED BLOOD COUNT 4.26 10^6/uL (3.72-5.28); RED CELL DISTRIBUTION WIDTH 19.3 % (11.5-14.0); SEGMENTED NEUTROPHILS % (AUTO) 66.5 % (42-78); TOTAL CELLS COUNTED % (AUTO) 100 %; WHITE BLOOD COUNT 7.3 10^3/uL (4.0-10.5)
[2018-11-17 07:50] LABS: ALANINE AMINOTRANSFERASE 21 U/L (9-52); ALBUMIN 3.6 g/dL (3.5-5.0); ALKALINE PHOSPHATASE 72 U/L (38-126); ANION GAP 10 (5-19); ASPARTATE AMINO TRANSFERASE 12 U/L (14-36); BILIRUBIN,DIRECT 0.2 mg/dL (0.0-0.4); BILIRUBIN,TOTAL 0.5 mg/dL (0.2-1.3); BLOOD UREA NITROGEN 17 mg/dL (7-20); CALCIUM 8.8 mg/dL (8.4-10.2); CARBON DIOXIDE 28 mmol/L (22-30); CHLORIDE 105 mmol/L (98-107); CHOLESTEROL 129.38 mg/dL (0-200); GLUCOSE 95 mg/dL (75-110); POTASSIUM 4.3 mmol/L (3.6-5.0); TRIGLYCERIDES 118 mg/dL (<150)
[2018-11-17 08:01] LABS: DIRECT LDL 95 mg/dL (<100)
[2018-11-17 08:02] LABS: HEMOGLOBIN 7.7 g/dL (12.0-15.5)
[2018-11-17 08:05] LABS: ANISOCYTOSIS 2+; HYPOCHROMASIA 2+; OVALOCYTES SLIGHT; PLATELET COMMENT ADEQUATE; PLATELET LARGE PRESENT; POIKILOCYTOSIS SLIGHT; POLYCHROMASIA 1+; TEAR DROP CELLS SLIGHT
[2018-11-17] MEDS: DOCUSATE SODIUM 100 MG CAPSULE PO SCH ×2 (09:44→17:21)
[2018-11-17] MEDS: METOPROLOL TARTRATE 50 MG TABLET PO SCH ×2 (09:56→21:41)
[2018-11-17] MEDS: NICOTINE 21 MG/24 HR PATCH.TD24 TD SCH (09:57)
[2018-11-17] MEDS: CEFTRIAXONE 2 GM/D5W RTU 2 GM/50 ML RTUPB IV SCH (09:57)
[2018-11-17] MEDS: ENOXAPARIN SODIUM INJ 40 MG/0.4 ML DISP.SYRIN SUBCUT SCH (09:57)
[2018-11-17] MEDS: ACETAMINOPHEN 325 MG TABLET PO PRN (10:00)
[2018-11-17] MEDS: IBUPROFEN 600 MG TABLET PO PRN ×2 (10:00→21:45)
[2018-11-17] MEDS: GUAIFENESIN/CODEINE PHOS 100-10 MG/ 5 ML UDC PO PRN ×2 (10:00→17:36)
[2018-11-17] MEDS ORDERED: GABAPENTIN 300 MG CAPSULE PO ONE (11:30)
[2018-11-17] MEDS: LEVOFLOXACIN 750 MG/D5W RTU 750 MG/150 ML RTUPB IV SCH (13:36)
--- NOTE | 2018-11-17 13:59 | PDOC PROGRESS REPORT ---
Subjective Progress Note for:: 11/17/18 Subjective:: This is 38 years old female patient with past medical history of hypertension, morbid obesity, tobacco dependence presented with chief complaint of cough of 4 days duration. For the above mentioned complaint initially patient has visited the ER 3 times. In ER patient was found to be hypoxic with O2 saturation of 87%. Patient has been started on supplemental oxygen and antibiotics. Her CT scan of the chest without contrast revealed bilateral pulmonary nodules less than 6 mm. Patient reports that she smokes a pack a day for the last 30 years. This morning I reviewed her blood work and it shows pictures of microcytic anemia with hemoglobin of 7.7. Iron studies and stool for occult blood requested. Reason For Visit: BRONCHITIS Physical Exam Vital Signs: Temp Pulse Resp BP Pulse Ox 97.9 F 75 18 154/85 H 100 11/17/18 07:27 11/17/18 12:28 11/17/18 12:28 11/17/18 07:27 11/17/18 12:28 Intake & Output 11/16/18 11/17/18 11/18/18 06:59 06:59 06:59 Intake Total 647 1253 Balance 647 1253 Weight 136 kg General appearance: PRESENT: morbidly obese Head exam: PRESENT: atraumatic, normocephalic Neck exam: ABSENT: carotid bruit, JVD, lymphadenopathy, thyromegaly Respiratory exam: PRESENT: crackles, wheezes Cardiovascular exam: PRESENT: RRR. ABSENT: diastolic murmur, rubs, systolic murmur Extremities exam: PRESENT: full ROM. ABSENT: calf tenderness, clubbing, pedal edema Neurological exam: PRESENT: alert, awake, oriented to time, oriented to situation Results Laboratory Results: 11/17/18 06:25 11/17/18 06:25 11/17/18 11/17/18 11/17/18 06:25 06:25 06:25 WBC 7.3 RBC 4.26 Hgb 7.7 L Hct 27.1 L MCV 64 L MCH 18.1 L MCHC 28.5 L RDW 19.3 H Plt Count 222 Seg Neutrophils % 66.5 Lymphocytes % 20.8 Monocytes % 11.5 Eosinophils % 0.8 Basophils % 0.4 Absolute Neutrophils 4.8 Absolute Lymphocytes 1.5 Absolute Monocytes 0.8 Absolute Eosinophils 0.1 Absolute Basophils 0.0 Sodium 143.0 Potassium 4.3 Chloride 105 Carbon Dioxide 28 Anion Gap 10 BUN 17 Creatinine 0.66 Est GFR ( Amer) > 60 Est GFR (Non-Af Amer) > 60 Glucose 95 Calcium 8.8 Magnesium 2.1 Total Bilirubin 0.5 AST 12 L ALT 21 Alkaline Phosphatase 72 Total Protein 6.0 L Albumin 3.6 Triglycerides 118 Cholesterol 129.38 LDL Cholesterol Direct 95 VLDL Cholesterol 24.0 HDL Cholesterol 31 L TSH 1.87 11/16/18 11/16/18 11/16/18 02:58 09:46 09:46 Creatine Kinase 104 CK-MB (CK-2) 2.40 Troponin I < 0.012 < 0.012 NT-Pro-B Natriuret Pep 11/16/18 11/16/18 11/16/18 14:40 14:40 21:15 Creatine Kinase 94 82 CK-MB (CK-2) 1.92 Troponin I < 0.012 NT-Pro-B Natriuret Pep 11/16/18 11/17/18 21:15 06:25 Creatine Kinase CK-MB (CK-2) 1.93 Troponin I < 0.012 NT-Pro-B Natriuret Pep 180 H Impressions: Chest CT 11/16/18 00:00 IMPRESSION: Less than 6 mm ground-glass nodules. No infiltrate. Chest X-Ray 11/16/18 06:15 IMPRESSION: Clear lungs. Assessment and Plan - Diagnosis (1) Microcytic anemia Is this a current diagnosis for this admission?: Yes Plan: Etiology unclear. Iron studies requested including B12 and folic acid level. (2) Acute bronchitis with hypoxia Is this a current diagnosis for this admission?: Yes Plan: Patient has been on bronchodilator, ceftriaxone and Levaquin. I discontinued ceftriaxone and continue the Levaquin. (3) Bilateral pulmonary nodules Is this a current diagnosis for this admission?: Yes Plan: Her CT scan revealed bilateral pulmonary nodules less than 6 mm. With background history of heavy smoking pulmonary nodules should be taken seriously. I will consult Dr. Llanes for his input. (4) Morbid obesity with BMI of 45.0-49.9, adult Is this a current diagnosis for this admission?: Yes Plan: Patient counseled to do lifestyle modification in the form of healthy diet exercise and weight loss. (5) Tobacco dependence Is this a current diagnosis for this admission?: Yes Plan: Counseled and encouraged to quit smoking. She has been getting the nicotine patch. (6) Hypertension Qualifiers: Hypertension type: essential hypertension Qualified Code(s): I10 - E ssential (primary) hypertension Is this a current diagnosis for this admission?: Yes Plan: Continue current medication.
[2018-11-17] MEDS: GABAPENTIN 300 MG CAPSULE PO SCH ×2 (15:48→21:41)
[2018-11-18 06:06] LABS: ABSOLUTE RETICS # 0.121 10^6/uL (0.028-0.122); HEMATOCRIT 27.2 % (36.0-47.0); MEAN CORPUSCULAR HEMOGLOBIN 18.4 pg (27.0-33.4); MEAN CORPUSCULAR VOLUME 63 fl (80-97); PLATELET COUNT 221 10^3/uL (150-450); RED CELL DISTRIBUTION WIDTH 19.4 % (11.5-14.0); RETICULOCYTE COUNT (AUTO) 2.81 % (0.66-2.85); WHITE BLOOD COUNT 8.6 10^3/uL (4.0-10.5)
[2018-11-18 06:34] LABS: IRON(TIBC) < 10.1 ug/dL (37-170)
[2018-11-18] MEDS: GABAPENTIN 300 MG CAPSULE PO SCH ×2 (06:41→14:29)
[2018-11-18] MEDS: PANTOPRAZOLE SODIUM 40 MG TABLET.DR PO SCH (06:41)
[2018-11-18 06:53] LABS: HEMOGLOBIN 7.9 g/dL (12.0-15.5)
[2018-11-18 07:07] LABS: FERRITIN 5.92 ng/mL (6.2-137.0)
[2018-11-18 07:37] LABS: FOLATE 4.62 ng/mL (>2.76)
[2018-11-18] MEDS: LEVALBUTEROL HCL NEB 0.63 MG/3 ML AMPUL NEB PRN (08:40)
--- NOTE | 2018-11-18 10:33 | PDOC DISCHARGE SUMMARY ---
General - Admit/Disc Date/PCP Admission Date/Primary Care Provider: 11/16/18 09:09 Discharge Date: 11/18/18 - Discharge Diagnosis (1) Microcytic anemia Is this a current diagnosis for this admission?: Yes (2) Acute bronchitis with hypoxia Is this a current diagnosis for this admission?: Yes (3) Bilateral pulmonary nodules Is this a current diagnosis for this admission?: Yes (4) Morbid obesity with BMI of 45.0-49.9, adult Is this a current diagnosis for this admission?: Yes (5) Tobacco dependence Is this a current diagnosis for this admission?: Yes (6) Hypertension Is this a current diagnosis for this admission?: Yes - Additional Information Resuscitation Status: Full Code Home Medications: Metoprolol Tartrate [Lopressor 50 mg Tablet] 50 mg PO Q12 11/16/18 History of Present Illness History of Present Illness: THERON ROCHE is a 38 year old female with history of obesity, hypertension came to the emergency room with complaints of shortness of breath and cough for the last 4 days. She was here on Thursday and she was told she has bronchitis and given an inhaler and prednisone she unable to fill the prescriptions initially then EKG came back here in Thursday bladder problems and today came back again with worsening shortness of breath and cough. Patient given the history of low- grade fever at home and shortness of breath is associated with productive cough whitish to green sputum denies any nausea vomiting's complaining of loose stools since yesterday. Denies any rashes. Denies any dizzy spells. Denies any rashes denies any headaches. Denies any problems with urination. Patient has similar symptoms 1 year ago at the time she was diagnosed with bronchitis. Hospital Course Hospital Course: This is 38 years old female patient with past medical history of hypertension, morbid obesity, tobacco dependence presented with chief complaint of cough of 4 days duration. For the above mentioned complaint initially patient has visited the ER 3 times. In ER patient was found to be hypoxic with O2 saturation of 87%. Patient has been started on supplemental oxygen and antibiotics. Her CT scan of the chest without contrast revealed bilateral pulmonary nodules less than 6 mm. Patient reports that she smokes a pack a day for the last 30 years. I reviewed her blood work and it shows pictures of microcytic anemia with hemoglobin of 7.7. Iron studies revealed low serum iron level. Her stool for occult blood is negative. Her hemoglobin trended up to 7.9. Patient states she has had heavy menses which could explain her microcytic anemia. For her pulmonary nodules will set up appointment with oncologist. I will send her home with iron sulfate and Zithromax. Physical Exam Vital Signs: Temp Pulse Resp BP Pulse Ox 97.5 F 84 18 130/70 H 99 11/17/18 23:54 11/18/18 08:42 11/18/18 08:42 11/17/18 23:54 11/18/18 08:42 Intake & Output 11/17/18 11/18/18 11/19/18 06:59 06:59 06:59 Intake Total 1253 1770 Balance 1253 1770 Weight 136 kg 136 kg General appearance: PRESENT: no acute distress Head exam: PRESENT: atraumatic Eye exam: PRESENT: conjunctiva pink Neck exam: ABSENT: carotid bruit, JVD, lymphadenopathy, thyromegaly Respiratory exam: PRESENT: clear to auscultation dary. ABSENT: rales, rhonchi, wheezes Cardiovascular exam: PRESENT: RRR. ABSENT: diastolic murmur, rubs, systolic murmur GI/Abdominal exam: PRESENT: normal bowel sounds, soft. ABSENT: distended, guarding, mass, organolmegaly, rebound, tenderness Neurological exam: PRESENT: alert, awake, oriented to time, oriented to si tuation Results Laboratory Results: 11/18/18 05:10 11/17/18 06:25 11/17/18 11/18/18 11/18/18 15:37 05:10 05:10 WBC 8.6 RBC 4.30 Hgb 7.9 L Hct 27.2 L MCV 63 L MCH 18.4 L MCHC 29.0 L RDW 19.4 H Plt Count 221 Retic Count (auto) 2.81 Absolute Retic 0.121 Iron < 10.1 L TIBC 373 % Saturation UNABLE TO CALCULATE Ferritin 5.92 L Vitamin B12 494.0 Folate 4.62 Stool Occult Blood NEGATIVE 11/16/18 11/16/18 11/16/18 02:58 09:46 09:46 Creatine Kinase 104 CK-MB (CK-2) 2.40 Troponin I < 0.012 < 0.012 NT-Pro-B Natriuret Pep 11/16/18 11/16/1819 14:40 14:40 21:15 Creatine Kinase 94 82 CK-MB (CK-2) 1.92 Troponin I < 0.012 NT-Pro-B Natriuret Pep 11/16/18 11/17/18 21:15 06:25 Creatine Kinase CK-MB (CK-2) 1.93 Troponin I < 0.012 NT-Pro-B Natriuret Pep 180 H Impressions: Chest CT 11/16/18 00:00 IMPRESSION: Less than 6 mm ground-glass nodules. No infiltrate. Chest X-Ray 11/16/18 06:15 IMPRESSION: Clear lungs. Qualifiers - * PATIENT BEING DISCHARGED WITH ANY OF THE FOLLOWING DIAGNOSIS: No Acute Heart Failure Is this a Heart Failure Patient?: No
--- NOTE | 2018-11-18 10:44 | PDOC CONSULTATION ---
Consultation Consult Date: 11/18/18 Consult reason:: Hematology/Oncology consultation was requested for patient with iron deficiency anemia and lung nodules. History of Present Illness Admission Date/PCP: 11/16/18 09:09 History of Present Illness: THERON ROCHE is a 38 year old female who is followed at the [facility]. She states that she had cough and dyspnea of the past 7 days. She has had bronchitis before, but it has never been this bad. She presented to the ED and was admitted for further treatment. She was found to a microcytic anemia on admission. She states that she has never been told in the past that she was anemic. She has not been on iron supplements. She has been craving ice for many many years. She has regular periods usually lasting about 7 days. She has a well balanced diet with some meats. Past Medical History Cardiac Medical History: Reports: Hypertension Past Surgical History Past Surgical History: Reports: Section, Orthopedic Surgery - R foot Bone Spur 1990, Tubal Ligation Social History Information Source: Patient Lives with: Family Smoking Status: Current Every Day Smoker Cigarettes Packs Per Day: 1 Number of Years Smokin Frequency of Alcohol Use: Occasional Hx Recreational Drug Use: No Hx Prescription Drug Abuse: No Past Social History Note: She is and has 3 children. She works at [employer]. - Advance Directive Resuscitation Status: Full Code Family History Family History: Reviewed & Not Pertinent Parental Family History Reviewed: Yes - Mom with HTN. PGM of lung cancer in her 50s. MGF with CAD. Children Family History Reviewed: Yes Sibling(s) Family History Reviewed.: No Medication/Allergy Home Medications: Metoprolol Tartrate [Lopressor 50 mg Tablet] 50 mg PO Q12 11/16/18 Azithromycin [Zithromax 600 mg Tablet] 600 mg PO DAILY 5 Days #5 tablet 11/18/18 Ferrous Sulfate, Dried [Slow Release Iron] 250 mg PO BID #60 11/18/18 Allergies/Adverse Reactions: No Known Allergies Allergy (Verified 03/18/18 22:13) Review of Systems Constitutional: ABSENT: fever(s), headache(s) Eyes: ABSENT: visual disturbances Ears: ABSENT: hearing changes Nose, Mouth, and Throat: PRESENT: sore throat Cardiovascular: PRESENT: dyspnea on exertion Respiratory: PRESENT: cough, dyspnea Gastrointestinal: ABSENT: nausea, vomiting Genitourinary: ABSENT: dysuria Integumentary: ABSENT: rash Neurological: ABSENT: confusion, weakness Hematologic/Lymphatic: ABSENT: lymphadenopathy Physical Exam Vital Signs: Temp Pulse Resp BP Pulse Ox 97.5 F 84 18 130/70 H 99 11/17/18 23:54 11/18/18 08:42 11/18/18 08:42 11/17/18 23:54 11/18/18 08:42 Intake & Output 11/17/18 11/18/18 11/19/18 06:59 06:59 06:59 Intake Total 1253 1770 Balance 1253 1770 Weight 136 kg 136 kg General appearance: PRESENT: no acute distress, obese Exam: 38 year old female. Head exam: PRESENT: normocephalic Eye exam: PRESENT: EOMI, PERRLA Mouth exam: PRESENT: tongue midline Throat exam: ABSENT: tonsillar erythema Neck exam: ABSENT: lymphadenopathy, tenderness Respiratory exam: PRESENT: wheezes, other - frequent coughing. Cardiovascular exam: PRESENT: other - Heart sounds were obscured by lung sounds. GI/Abdominal exam: PRESENT: soft. ABSENT: organolmegaly, tenderness Extremities exam: ABSENT: pedal edema Neurological exam: PRESENT: alert, awake Psychiatric exam: PRESENT: appropriate affect Skin exam: PRESENT: normal color Results Laboratory Results: 11/18/18 05:10 11/17/18 06:25 11/17/18 11/18/18 11/18/18 15:37 05:10 05:10 WBC 8.6 RBC 4.30 Hgb 7.9 L Hct 27.2 L MCV 63 L MCH 18.4 L MCHC 29.0 L RDW 19.4 H Plt Count 221 Retic Count (auto) 2.81 Absolute Retic 0.121 Iron < 10.1 L TIBC 373 % Saturation UNABLE TO CALCULATE Ferritin 5.92 L Vitamin B12 494.0 Folate 4.62 Stool Occult Blood NEGATIVE 11/16/18 11/16/18 11/16/18 02:58 09:46 09:46 Creatine Kinase 104 CK-MB (CK-2) 2.40 Troponin I < 0.012 < 0.012 NT-Pro-B Natriuret Pep 11/16/18 11/16/18 11/16/18 14:40 14:40 21:15 Creatine Kinase 94 82 CK-MB (CK-2) 1.92 Troponin I < 0.012 NT-Pro-B Natriuret Pep 11/16/18 11/17/18 21:15 06:25 Creatine Kinase CK-MB (CK-2) 1.93 Troponin I < 0.012 NT-Pro-B Natriuret Pep 180 H Impressions: Chest CT 11/16/18 00:00 IMPRESSION: Less than 6 mm ground-glass nodules. No infiltrate. Chest X-Ray 11/16/18 06:15 IMPRESSION: Clear lungs. Status: Image reviewed by me Assessment & Plan - Diagnosis (1) Iron deficiency anemia Qualifiers: Iron deficiency anemia type: unspecified iron deficiency Qualified Code(s): D50.9 - Iron deficiency anemia, unspecified Is this a current diagnosis for this admission?: Yes Plan: We discussed the severeity of her anemia and the fact that she is greatly symptomatic currently. I recommend giving IV iron x 1 dose and then follow-up in the office to see if PO iron tabs will be needed for maintenance. Patient agrees. I will order. (2) Bilateral pulmonary nodules Is this a current diagnosis for this admission?: Yes Plan: These could be inflammatory or malignant. I recommend repeat CT chest in 3 months and biopsy if possible. I will help to arrange this as outpatient. - Plan Summary Plan Summary: Thank you for this consultation. I will continue to follow her.
[2018-11-18] MEDS ORDERED: FERRIC CARBOXYMALTOSE INJ 750 MG/15 ML VIAL IV SCH (10:45)
[2018-11-18] MEDS: METOPROLOL TARTRATE 50 MG TABLET PO SCH (11:05)
[2018-11-18] MEDS: DOCUSATE SODIUM 100 MG CAPSULE PO SCH (11:05)
[2018-11-18] MEDS: IBUPROFEN 600 MG TABLET PO PRN (11:07)
[2018-11-18] MEDS: ENOXAPARIN SODIUM INJ 40 MG/0.4 ML DISP.SYRIN SUBCUT SCH (11:08)
[2018-11-18] MEDS: NICOTINE 21 MG/24 HR PATCH.TD24 TD SCH (11:10)
[2018-11-18] MEDS ORDERED: LEVOFLOXACIN 750 MG TABLET PO SCH (12:00)
[2018-11-18 13:34] VITALS: BP 142/83
[2018-11-18] MEDS ORDERED: FERRIC CARBOXYMALTOSE 750 MG in NORMAL SALINE 250 ML IV ONE (14:00)
== END 2018-11-18 17:00 | disposition home or self-care (01) ==
LOC: ER 02:55 → EH 09:09 → INTOOBSV 09:09 → 4N 13:45 → INTOOBSV 11-18 16:25 → OBSVTOIN 11-18 16:25
PROVIDERS: ADMIT Internal Medicine; ATTEND Internal Medicine
PROC: HZ31ZZZ Individual Counseling for Substance Abuse Treatment, Behavioral (ICD-10-PCS; principal; 2018-11-16)
DX: D50.9 Iron deficiency anemia, unspecified (principal); J20.9 Acute bronchitis, unspecified; R09.02 Hypoxemia; R91.8 Other nonspecific abnormal finding of lung field; E66.01 Morbid (severe) obesity due to excess calories; Z68.42 Body mass index [BMI] 45.0-49.9, adult; F17.210 Nicotine dependence, cigarettes, uncomplicated; R19.7 Diarrhea, unspecified; I10 Essential (primary) hypertension; R00.0 Tachycardia, unspecified; Z79.899 Other long term (current) drug therapy; Z87.09 Personal history of other diseases of the respiratory system; Z82.49 Family history of ischemic heart disease and other diseases of the circulatory system; Z80.1 Family history of malignant neoplasm of trachea, bronchus and lung; Z59.6 Low income
CPT/HCPCS: 93005; 94640 ×3; 99285; 96365; 96366; 36415 ×3; 87040; 87070; 87205; 82553; 82607; 82803; 82550; 82728; 82746; 83540; 83550; 83735; 84443; 84703; 85025 ×2; 85027; 82272; 87077; 85045; 80048; 80053; 81001; 84484; 80307; 83036; 80061; 83880; 71045; 71250; 93010; 99407; G0378 ×4; J1650 ×2; J3475; J3490 ×6; J7040; J1956 ×2; J7614 ×3; J7620; J0696 ×2

== ENCOUNTER → 2019-02-02 | Outpatient (CLI) | payer OTHER ==
--- NOTE | 2019-02-02 18:45 | RADIOLOGY REPORT (SQ) ---
EXAM DESCRIPTION: U/S NON-OB PELVIS TV W/O DOP COMPLETED DATE/TIME: 02/02/2019 5:17 pm REASON FOR STUDY: N93.9 ABNORMAL UTERINE AND VAGINAL BLEEDING, UNSPECIFIED N93.9 ABNORMAL UTERINE A ND VAGINAL BLEEDING, UNSPECIFIED COMPARISON: None. TECHNIQUE: Dynamic and static grayscale images acquired of the pelvis via transvaginal approach and recorded on PACS. Additional selected color Doppler and spectral images recorded. LIMITATIONS: None. FINDINGS: UTERUS: A 2.3 x 1.7 x 1.5 cm fibroid is present in the anterior myometrium. ENDOMETRIAL STRIPE: Prominent, but within normal limits in a premenopausal patient. CERVIX: No nabothian cysts. RIGHT OVARY AND DOPPLER: Normal size. No worrisome masses. Normal arterial vascular flow without evid ence for torsion. LEFT OVARY AND DOPPLER: Normal size. No worrisome masses. Normal arterial vascular flow without evide nce for torsion. FREE FLUID: None noted. OTHER: No other significant finding. MEASUREMENTS: UTERUS: 10.8 x 5 x 5.6 cm. ENDOMETRIAL STRIPE: 1.3 cm. RIGHT OVARY: 2.8 x 2.5 x 2.4 cm. LEFT OVARY: 3.3 x 2.2 x 1.9 cm. IMPRESSION: Uterine fibroid. TECHNICAL DOCUMENTATION: JOB ID: [id number] [employer]- All Rights Reserved Rev-11/27 Reading location - IP/workstation name: [email or web address]
== END ==
LOC: RAD 16:42
DX: D25.9 Leiomyoma of uterus, unspecified (principal); N93.9 Abnormal uterine and vaginal bleeding, unspecified
CPT/HCPCS: 76830

== ENCOUNTER → 2019-02-02 | Outpatient (CLI) | payer OTHER ==
[2019-02-02 16:55] LABS: ABSOLUTE BASOPHILS # (AUTO) 0.1 10^3/uL (0.0-0.2); ABSOLUTE EOSINOPHILS # (AUTO) 0.3 10^3/uL (0.0-0.6); ABSOLUTE LYMPHOCYTES (AUTO) 1.8 10^3/uL (0.5-4.7); ABSOLUTE MONOCYTES (AUTO) 0.4 10^3/uL (0.1-1.4); BASOPHILS % (AUTO) 0.8 % (0-2); EOSINOPHILS % (AUTO) 4.6 % (0-6); HEMATOCRIT 28.9 % (36.0-47.0); HEMOGLOBIN 8.3 g/dL (12.0-15.5); LYMPHOCYTES % (AUTO) 27.1 % (13-45); MEAN CORPUSCULAR HEMOGLOBIN 17.4 pg (27.0-33.4); MEAN CORPUSCULAR HGB CONC 28.9 g/dL (32.0-36.0); MEAN CORPUSCULAR VOLUME 60 fl (80-97); MONOCYTES % (AUTO) 6.4 % (3-13); PLATELET COUNT 222 10^3/uL (150-450); RED BLOOD COUNT 4.81 10^6/uL (3.72-5.28); RED CELL DISTRIBUTION WIDTH 21.1 % (11.5-14.0); SEGMENTED NEUTROPHILS % (AUTO) 61.1 % (42-78); TOTAL CELLS COUNTED % (AUTO) 100 %; WHITE BLOOD COUNT 6.6 10^3/uL (4.0-10.5)
[2019-02-02 17:11] LABS: IRON(TIBC) 19.6 ug/dL (37-170)
[2019-02-02 17:19] LABS: ANISOCYTOSIS 3+; HYPOCHROMASIA 2+; OVALOCYTES 1+; PLATELET COMMENT ADEQUATE; POIKILOCYTOSIS 1+; POLYCHROMASIA SLIGHT
[2019-02-02 17:20] LABS: PLATELET LARGE PRESENT
== END ==
LOC: CCC 16:30
DX: D64.9 Anemia, unspecified (principal)
CPT/HCPCS: 36415; 83540; 83550; 85025

== ENCOUNTER 2019-03-27 15:08 | Emergency (ER) | payer OTHER ==
[2019-03-27] MEDS ORDERED: DEXAMETHASONE SOD PHOS INJ 10 MG/1 ML VIAL IM ONE (16:00)
[2019-03-27] MEDS ORDERED: IPRATROPIUM/ALBUTEROL 0.5-2.5 MG/3 ML AMPUL NEB ONE (16:00)
[2019-03-27] MEDS ORDERED: ACETAMINOPHEN 325 MG TABLET PO ONE (16:00)
--- NOTE | 2019-03-27 16:05 | ER Document Report ---
HPI - HPI Time Seen by Provider: 03/27/19 15:42 Pain Level: 2 Context: Patient is a 38-year-old female with a history of hypertension who presents to emergency department with a chief complaint of cough x2 days. Patient reports she has had nasal drainage, productive cough with white sputum x2 days. Patient reports she does smoke 1 pack/day. Patient reports that when she does smoke it seems to irritate make the cough worse. Patient states today she was outside m owing the grass when the cough seemed to get bad. Patient states she was hospitalized with bronchitis back in November. Patient denies fever. Patient denies vomiting. Patient reports normal appetite. Patient does report intermittent diarrhea since Thursday. Patient states she does have an albuterol inhaler at home that she was given when she was discharged from this facility back in November but did not use it over the past 2 days. Patient reports she is currently living with a friend who has 5 dogs and an AC unit that is not working. Patient states she is not sure if being in the AC all day and then coming home to a hot house is exacerbating her symptoms as well. - CONSTITUTIONAL Constitutional: DENIES: Fever, Chills - EENT EENT: REPORTS: Sore Throat. DENIES: Ear Pain, Eye problems - NEURO Neurology: REPORTS: Headache. DENIES: Weakness, Vision blurred, Dizzinesss / Vertigo - CARDIOVASCULAR Cardiovascular: DENIES: Chest pain - RESPIRATORY Respiratory: REPORTS: Trouble Breathing - occasional, Coughing - GASTROINTESTINAL Gastrointestinal: DENIES: Abdominal Pain - URINARY Urinary: DENIES: Dysuria, Urgency, Frequency - REPRODUCTIVE Reproductive: DENIES: : - MUSCULOSKELETAL Musculoskeletal: DENIES: Extremity pain Past Medical History - General Information source: Patient - Social History Smoking Status: Current Every Day Smoker Chew tobacco use (# tins/day): No Frequency of alcohol use: None Drug Abuse: None Lives with: Friend Family History: Reviewed & Not Pertinent Patient has suicidal ideation: No Patient has homicidal ideation: No - Past Medical History Cardiac Medical History: Reports: Hx Hypertension Renal/ Medical History: Denies: Hx Peritoneal Dialysis Past Surgical History: Reports: Hx Section, Hx Orthopedic Surgery - R foot Bone Spur 1990, Hx Tubal Ligation - Immunizations Immunizations up to date: Yes Hx Diphtheria, Pertussis, Tetanus Vaccination: Yes Vertical Provider Document - CONSTITUTIONAL Agree With Documented VS: Yes Exam Limitations: No Limitations General Appearance: No Apparent Distress - INFECTION CONTROL TRAVEL OUTSIDE OF THE [place] IN LAST 30 DAYS: No - HEENT Notes: GENERAL: Well-appearing, well-nourished and in no acute distress. HEAD: Atraumatic, normocephalic. EYES: Pupils equal round and reactive to light, extraocular movements intact, sclera anicteric, conjunctiva are normal. ENT: TMs normal, nares patent, oropharynx clear without exudates. Moist mucous membranes. NECK: Normal range of motion, supple without lymphadenopathy or JVD. LUNGS: Expiratory wheeze noted in left lower lobe, pt. did have rhonchi that cleared with cough. + intermittent dry cough. HEART: Regular rate and rhythm without murmurs, rubs or gallops. ABDOMEN: Soft, nontender, normoactive bowel sounds. No guarding, no rebound. No masses appreciated. BACK: No cervical, thoracic, lumbar midline tenderness. No saddle anesthesia, normal distal neurovascular exam. GENITOURINARY: Deferred. EXTREMITIES: Normal range of motion, no pitting or edema. No clubbing or c yanosis. NEUROLOGICAL: Cranial nerves II through XII grossly intact. Normal speech, normal gait. PSYCH: Normal mood, normal affect. SKIN: Warm, Dry, normal turgor, no rashes or lesions noted. Course - Re-evaluation Re-evalutation: 03/27/19 16:58 Patient nontoxic-appearing at triage. Patient's blood pressure has improved in 144 systolic. - Vital Signs Vital signs: Temp Pulse Resp BP Pulse Ox 97.8 F 96 14 161/86 H 94 03/27/19 15:15 03/27/19 15:15 03/27/19 15:15 03/27/19 15:15 03/27/19 15:15 Discharge - Discharge Clinical Impression: Bronchitis Headache Qualifiers: Headache type: unspecified Headache chronicity pattern: acute headache Intractability: not intractable Qualified Code(s): R51 - Headache Condition: Stable Disposition: HOME, SELF-CARE Additional Instructions: Today you were seen in the emergency department for cough. Your symptoms are consistent with thickened acute bronchitis. We have given you a dose of steroids and a breathing treatment while here in the emergency department. Please use your albuterol inhaler that you have at home. You can take 2 puffs every 4 hours as needed for wheezing. Please increase your fluid intake. A coolmist humidifier may make your lungs more comfortable. If you smoke please stop as this can be an extremely irritant. If you do work outside to mow the grass and do yard work please wear a mask. At this time he did not have any symptoms of an acute pneumonia as you are afebrile. Please return to the emergency department if you develop a fever, increasing shortness of breath, chest pain, bloody sputum or any other concerning signs or symptoms. I am placing you on a steroid Dosepak. Please take only as prescribed. Please follow-up with the [facility] in regards to your blood pressure. Please take your prescribed blood pressure medications that are due tonight. Bronchitis You have acute bronchitis. This disease is an infection or inflammation of the air passageways in your lungs. Symptoms usually include cough, low grade fever, shortness of breath, and wheezing. The cough usually persists for a couple of weeks. Most cases of bronchitis get better without antibiotics. We prescribe antibiotics when we believe bacteria are damaging your airways, or if there's high risk the bronchitis will worsen into pneumonia. Increase your fluid intake. A cool mist humidifier may make your lungs more comfortable. An expectorant (cough medicine that loosens phlegm) can help. If you smoke, STOP!!! Recovery from bronchitis can be somewhat slow, but you shou ld see improvement within a day or two. Repeated episodes of bronchitis may result in lung damage -- for example, chronic bronchitis, recurrent pneumonias, or emphysema. Call the doctor if you develop increasing fever, shortness of breath, chest pain, bloody sputum, or otherwise worsen. If you have not improved at all after several days, contact the physician. Prescriptions: Prednisone [Deltasone 10 mg Tablet] 10 mg PO ASDIR PRN #21 tablet PRN Reason: Forms: Smoking Cessation Education, Elevated Blood Pressure Referrals: SASHA SEXTON MD [Primary Care Provider] - Follow up as needed
[2019-03-27 16:48] VITALS: BP 144/84
== END 2019-03-27 16:48 | disposition home or self-care (01) ==
LOC: ER 15:08
DX: J40 Bronchitis, not specified as acute or chronic (principal); R51 Headache; R05 Cough; R09.89 Other specified symptoms and signs involving the circulatory and respiratory systems; F17.200 Nicotine dependence, unspecified, uncomplicated; I10 Essential (primary) hypertension
CPT/HCPCS: 94640; 99283; 96372; J1100; J7620

== ENCOUNTER 2019-09-14 08:57 | Emergency (ER) | payer OTHER ==
--- NOTE | 2019-09-14 09:48 | ER Document Report ---
ED ENT - General Chief Complaint: Cough Stated Complaint: COUGH Time Seen by Provider: 09/14/19 09:42 Primary Care Provider: SASHA SEXTON MD [NO LOCAL MD] - Follow up in 3-5 days Mode of Arrival: Ambulatory Information source: Patient Notes: 39-year-old female presented to ED for cough cold congestion headache neck and body ache. She is alert oriented respirations regular nonlabored lungs clear to auscultation patient is nontoxic in appearance. TRAVEL OUTSIDE OF THE [place] IN LAST 30 DAYS: No - HPI Patient complains to provider of: Nose problem, Throat problem Onset: - Thursday Onset/Duration: Intermittent Quality of pain: Achy Pain Level: 4 Context: Recent Illness Location of pain: Nose, Sinus, Throat Associated symptoms: Runny nose, Sinus pain, Sinus drainage, Sore throat Similar symptoms previously: Yes Recently seen / treated by doctor: Yes - Related Data Allergies/Adverse Reactions: No Known Allergies Allergy (Verified 09/14/19 09:39) Past Medical History - General Information source: Patient - Social History Smoking Status: Current Every Day Smoker Cigarette use (# per day): Yes Smoking Education Provided: Yes Frequency of alcohol use: None Drug Abuse: None Lives with: Family Family History: Reviewed & Not Pertinent - Past Medical History Cardiac Medical History: Reports: Hx Hypertension Pulmonary Medical History: Reports: None EENT Medical History: Reports: None Neurological Medical History: Reports: None Endocrine Medical History: Reports: None Renal/ Medical History: Reports: None Malignancy Medical History: Reports: None GI Medical History: Reports: None Musculoskeletal Medical History: Reports None Skin Medical History: Reports None Psychiatric Medical History: Reports: None Traumatic Medical History: Reports: None Infectious Medical History: Reports: None Past Surgical History: Reports: Hx Section, Hx Orthopedic Surgery - R foot Bone Spur 1990, Hx Tubal Ligation - Immunizations Immunizations up to date: Yes Hx Diphtheria, Pertussis, Tetanus Vaccination: Yes Review of Systems - Review of Systems EENT: Nose congestion, Nose discharge, Sinus pressure Respiratory: Cough Physical Exam - Vital signs Vitals: Temp Pulse Resp BP Pulse Ox 98.2 F 86 18 151/85 H 95 09/14/19 09:26 09/14/19 09:26 09/14/19 09:26 09/14/19 09:26 09/14/19 09:26 Interpretation: Normal - General General appearance: Appears well, Alert - HEENT Head: Normocephalic, Atraumatic Eyes: Normal Pupils: PERRL Ears: Normal External canal: Normal Tympanic membrane: Normal Sinus: Normal Nasal: Purulent discharge, Swelling Mouth/Lips: Normal Mucous membranes: Normal Pharynx: Post nasal drainage. No: Erythema, Exudate, Tonsillar hypertrophy Neck: Normal - Respiratory Respiratory status: No respiratory distress. No: Respiratory distress Chest status: Nontender Breath sounds: Nonproductive cough. No: Productive cough, Rales, Rhonchi, Stridor, Wheezing Chest palpation: Normal - Cardiovascular Rhythm: Regular Heart sounds: Normal auscultation Murmur: No - Abdominal Inspection: Normal Distension: No distension Bowel sounds: Normal Tenderness: Nontender Organomegaly: No organomegaly - Back Back: Normal, Nontender - Extremities General upper extremity: Normal inspection, Nontender, Normal color, Normal ROM, Normal temperature General lower extremity: Normal inspection, Nontender, Normal color, Normal ROM, Normal temperature, Normal weight bearing. No: James's sign - Neurological Neuro grossly intact: Yes Cognition: Normal Orientation: AAOx4 Guido Coma Scale Eye Opening: Spontaneous Guido Coma Scale Verbal: Oriented Sturdivant Coma Scale Motor: Obeys Commands Sturdivant Coma Scale Total: 15 Speech: Normal Motor strength normal: LUE, RUE, LLE, RLE Sensory: Normal - Psychological Associated symptoms: Normal affect, Normal mood - Skin Skin Temperature: Warm Skin Moisture: Dry Skin Color: Normal Course - Re-evaluation Re-evalutation: 09/14/19 21:18 After performing a Medical Screening Examination, I estimate there is LOW risk for ACUTE CORONARY SYNDROME, RESPIRATORY FAILURE, SEPSIS OR MENINGITIS, thus I consider the discharge disposition reasonable. I have reevaluated this patient multiple times and no significant life threatening changes are noted. The patient and I have discussed the diagnosis and risks, and we agree with discharging home with close follow-up. We also discussed returning to the Emergency Department immediately if new or worsening symptoms occur. We have discussed the symptoms which are most concerning (e.g., changing or worsening pain, trouble swallowing or breathing, neck stiffness, fever) that necessitate immediate return. - Vital Signs Vital signs: Temp Pulse Resp BP Pulse Ox 98.2 F 86 18 108/68 95 09/14/19 09:26 09/14/19 09:26 09/14/19 09:26 09/14/19 09:46 09/14/19 09:26 Discharge - Discharge Clinical Impression: Upper respiratory virus Condition: Stable Disposition: HOME, SELF-CARE Additional Instructions: UPPER RESPIRATORY ILLNESS: You have a viral infection of the respiratory passages -- a "cold." This common infection causes nasal congestion, drainage, and often sore throat and cough. It is highly contagious. The disease usually lasts about 10 to 14 days. There is no "cure" for the viral infection -- it must run its course. If there is a complication, such as bacterial infection in the nose, sinuses, middle ear, or bronchial tubes, antibiotics may be required. The antibiotics won't affect the virus. Drink plenty of fluids. A humidifier may help. An expectorant medication or decongestant may make you more comfortable. Use acetaminophen or ibuprofen for fever or aches. See the doctor if fever persists over two days, if there is any significant worsening of your symptoms, or if you simply fail to improve as expected. You have been recommended treatment with Coricidin HP which is an [id number] medications for cough cold congestion. You could also use Flonase which is [id number] 1 spray each nostril twice a day. You could also use salt soda solution gargles. These will help to remove the drainage from the back your throat. Chloraseptic spray was [id number] that will also help with your sore throat. Salt and soda solution gargle 1 quart of water 1 tablespoon of salt 1 teaspoon of baking soda Mixed 3 ingredients together and boil for 1 minute Placed in a covered quart jar Use 1/2 ounce of cold solution to gargle 3 times a day USE OF ACETAMINOPHEN (Tylenol): Acetaminophen may be taken for pain relief or fever control. It's much safer than aspirin, offering a wider range of "safe" dosages. It is safe during . Some brand names are Tylenol, Panadol, Datril, Anacin 3, Tempra, and Liquiprin. Acetaminophen can be repeated every four hours. The following are maximum recommended dosages: >89 pounds or adults 650 mg to 900 mg Acetaminophen can be repeated every four hours. Maximum dose not to exceed 4000 mg a day. FOLLOW-UP CARE: If you have been referred to a physician for follow-up care, call the physicians office for an appointment as you were instructed or within the next two days. If you experience worsening or a significant change in your symptoms, notify the physician immediately or return to the Emergency Department at any time for re-evaluation. Forms: Elevated Blood Pressure, Smoking Cessation Education, Return to Work Referrals: SASHA SEXTON MD [NO LOCAL MD] - Follow up in 3-5 days
[2019-09-14 09:49] VITALS: BP 108/68
== END 2019-09-14 10:08 | disposition home or self-care (01) ==
LOC: ER 08:57
DX: J06.9 Acute upper respiratory infection, unspecified (principal); R51 Headache; M79.10 Myalgia, unspecified site; F17.210 Nicotine dependence, cigarettes, uncomplicated; I10 Essential (primary) hypertension; Z98.51 Tubal ligation status
CPT/HCPCS: 99283